=== PATIENT | female | born 1955 | race Caucasian/White ===

== ENCOUNTER 2019-01-06 06:15 | Emergency (ER) | payer BC, OTHER ==
[~2019-01-06] VITALS: Ht 157.5 cm; Wt 74.4 kg
[~2019-01-06 06:15] MED LIST: ATORVASTATIN CA80 MG PO; HYDROCODONE PO; IBUPROFEN PO; LANTUS 3ML100 UNITS/ SQ; LANTUS100 UNITS/ SQ; LASIX20 MG PO; LISINOPRIL10 MG PO; LOPRESSOR25 MG PO; LOVENOX60 MG/0.6; NORVASC5 MG PO; NOVOLOG MI100 UNIT/1 SQ; POTASSIUM CHLO10 ME1 PO
--- OUTSIDE RECORDS SUMMARY | 2019-01-06 06:20 | XMS REPORT ---
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 Allergies, Adverse Reactions, Alerts Allergy Name Allergy Type Status Severity Reaction(s) Onset Date Inactive Date Treating Clinician Comments codeine DA Active MO 2018-11-13 00:00:00 codeine DA Active MO 2018-10-10 00:00:00 codeine DA Active MO 2018-09-02 00:00:00 No Known Allergies DA Active U 2013-01-27 00:00:00 Medications This patient has no known medications. Results Test Description Test Time Test Comments Text Results Atomic Results Result Comments - XR TIBIA/FIBULA 2 V RT 2018-11-25 14:12:00 FAX: Harmeet Graves MD [phone] Ruth: St: ADM FAX: Booker Nelson [phone] FAX: Shahid Jarrett [phone] Name: STEFANIE BAIRD [facility] [place] : 1955 Age/S: 62/F [address] [place] [address] Unit #: [id number] Loc: [address] [address] Phys: Harmeet Graves MD Acct: [id number] Dis Date: Status: ADM IN PHONE #: [phone] Exam Date: 11/25/2018 1211 FAX #: [phone] Reason: right ankle and right LE pain EXAMS: CPT CODE: [id number] XR TIBIA/FIBULA 2 V RT [address]87 Patient: STEFANIE BAIRD. : 1955; Age: 62 years; Gender: Female. MR: [id number]. Ordering physician: Harmeet Graves MD. Right tibia and fibula 2 views. Right ankle 3 views. HISTORY: Right lower extremity and ankle pain. COMPARISON: None. FINDINGS: Frontal and lateral views of right tibia and fibula were obtained. Frontal, oblique and lateral views of the right ankle were obtained. All joint spaces are well preserved. No evidence of fracture, dislocation, knee or ankle joint effusion. Soft tissue is unremarkable. IMPRESSION: 1. Unremarkable right tibia and fibula. 2. Unremarkable right ankle. SL: [id number] at 1412 Reported and signed by: Azeem Altman M.D. CC: Harmeet Graves MD; Booker Mota M.D.; Shahid Jarrett DO Technologist: RT Arthur(R) Trnscrd Date/Time/By: 11/25/2018 (1412) : By: [email or web address] Orig Print D/T: S: 11/25/2018 (5411) PAGE 1 Signed Report - XR ANKLE 3 + V RT 2018-11-25 14:12:00 FAX: Harmeet Graves MD [phone] Ruth: St: ADM FAX: Booker Nelson [phone] FAX: Shahid Jarrett [phone] Name: STEFANIE BAIRD [facility] Dayna Soto : 1955 Age/S: 62/F [address] [place] [address] Unit #: [id number] Loc: [address] [address] Phys: Harmeet Graves MD Acct: [id number] Dis Date: Status: ADM IN PHONE #: [phone] Exam Date: 11/25/2018 1211 FAX #: [phone] Reason: right ankle and right LE pain EXAMS: CPT CODE: [id number] XR ANKLE 3 + V RT 71410 Patient: STEFANIE BAIRD. : 1955; Age: 62 years; Gender: Female. MR: [id number]. Ordering physician: Harmeet Graves MD. Right tibia and fibula 2 views. Right ankle 3 views. HISTORY: Right lower extremity and ankle pain. COMPARISON: None. FINDINGS: Frontal and lateral views of right tibia and fibula were obtained. Frontal, oblique and lateral views of the right ankle were obtained. All joint spaces are well preserved. No evidence of fracture, dislocation, knee or ankle joint effusion. Soft tissue is unremarkable. IMPRESSION: 1. Unremarkable right tibia and fibula. 2. Unremarkable right ankle. SL: [id number] at 1412 Reported and signed by: Azeem Altman M.D. CC: Harmeet Graves MD; Booker Mota M.D.; Shahid Jarrett DO Technologist: Kat Almodovar RT(R) Trnscrd Date/Time/By: 11/25/2018 (1412) : By: [email or web address] Orig Print D/T: S: 11/25/2018 (1590) PAGE 1 Signed Report BASIC METABOLIC PANEL 2018-11-25 08:24:00 SODIUM (test code=NA) 142 mEq/L 134-147 POTASSIUM (test code=K) 3.9 mEq/L 3.4-5.0 CHLORIDE (test code=CL) 106 mEq/L 100-108 CARBON DIOXIDE (test code=CO2) 31 mEq/L 21-33 ANION GAP (test code=GAP) 9 0-20 GLUCOSE (test code=GLU) 82 mg/dL 70-110 BLOOD UREA NITROGEN (test code=BUN) 10 mg/dL 7-18 GLOMERULAR FILTRATION RATE (test code=GFR) 101.6 80-90 Units of measure=ml/min/1.73 m2 CREATININE (test code=CREAT) 0.6 mg/dL 0.6-1.3 CALCIUM (test code=CA) 8.7 mg/dL 8.0-10.5 CBC W/AUTO [id number] 07:14:00* Test Item Value Reference Range Comments WHITE BLOOD CELL (test code=WBC) 6.51 x10 3/uL 4.5-11.0 RED BLOOD CELL (test code=RBC) 3.67 x10 6/uL 3.54-5.02 HEMOGLOBIN (test code=HGB) 12.5 g/dL 11.0-15.0 HEMATOCRIT (test code=HCT) 37.2 % 33.0-45.0 MEAN CELL VOLUME (test code=MCV) 101.4 fL 81.0-99.0 MEAN CELL HGB (test code=MCH) 34.1 pg 27.0-33.0 MEAN CELL HGB CONCETRATION (test code=MCHC) 33.6 g/dL 33.0-37.0 RED CELL DISTRIBUTION WIDTH CV (test code=RDW) 12.0 % 11.5-14.5 RED CELL DISTRIBUTION WIDTH SD (test code=RDW-SD) 45.0 fL 37.0-54.0 PLATELET COUNT (test code=PLT) 172 x10 3/uL 150-400 MEAN PLATELET VOLUME (test code=MPV) 12.8 fL 7.0-9.0 NEUTROPHIL % (test code=NT%) 63.2 % 56.0-77.0 IMMATURE GRANULOCYTE % (test code=IG%) 0.3 % 0.0-2.0 LYMPHOCYTE % (test code=LY%) 25.7 % 14.0-32.0 MONOCYTE % (test code=MO%) 8.4 % 4.8-9.0 EOSINOPHIL % (test code=EO%) 1.8 % 0.3-3.7 BASOPHIL % (test code=BA%) 0.6 % 0.0-2.0 NUCLEATED RBC % (test code=NRBC%) 0.0 % 0-0 NEUTROPHIL # (test code=NT#) 4.11 x10 3/uL 2.0-7.6 IMMATURE GRANULOCYTE # (test code=IG#) 0.02 x10 3/uL 0.00-0.03 LYMPHOCYTE # (test code=LY#) 1.67 x10 3/uL 1.0-3.8 MONOCYTE # (test code=MO#) 0.55 x10 3/uL 0.1-0.8 EOSINOPHIL # (test code=EO#) 0.12 x10 3/uL 0.0-0.2 BASOPHIL # (test code=BA#) 0.04 x10 3/uL 0.0-0.2 NUCLEATED RBC # (test code=NRBC#) 0.00 x10 3/uL 0.0-0.1 MANUAL DIFF REQUIRED (test code=MDIFF) NO - DUP EXTRACRANIAL [id number] 09:54:00 Name: STEFANIE BAIRD [facility] : 1955 Age/S: 62 / F [address] [place] [address] Blvd Unit #: [id number] Loc: [place] [address] Phys: Coby Reina MD Acct: [id number] Dis Date: Status: ADM IN PHONE #: [phone] Exam Date: 11/24/2018 09 FAX #: [phone] Reason: stroke EXAMS: CPT CODE: [id number] DUP EXTRACRANIAL DAVID 99520 BILATERAL CAROTID ULTRASOUND HISTORY: Left-sided leg weakness TECHNIQUE: Edouard-scale, color Doppler and spectral Doppler of the carotid arteries was performed. Any reported ICA stenoses indirectly reference the distal internal carotid diameter as the denominator for stenosis measurement, utilizing consensus panel criteria. RIGHT: There is mild carotid bulb plaque. ICA PSV 119 cm/sec CCA PSV 71 cm/sec ICA/CCA ratio 1.7 Vertebral flow is antegrade. LEFT: There is mild carotid bulb plaque. ICA PSV 110 cm/sec CCA PSV 88 cm/sec ICA/CCA ratio 1.2 Vertebral flow is antegrade. IMPRESSION: 1. RIGHT: ICA stenosis less than 50 % by velocity criteria. 2. LEFT: ICA stenosis less than 50 % by velocity criteria. End Impression Consensus panel Doppler US criteria for diagnosis of ICA stenosis. Stenosis (%) ICA PSV (cm/sec) ICA/CCA ratio <50 <125 <2.0 50-69 125-230 2.0-4.0 >70 but less than >230 >4.0 near occlusion Near occlusion High, low, or Variable undetectable SL: [id number] PAGE 1 Signed Report (CONTINUED) Name: STEFANIE BAIRD [facility] : 1955 Age/S: 62 / F [address] [place] [address] Unit #: [id number] Loc: [place] [address] Phys: Coby Reina MD Acct: [id number] Dis Date: Status: ADM IN PHONE #: Exam Date: 11/24/2018 0934 FAX #: Reason: stroke EXAMS: CPT CODE: [id number] DUP EXTRACRANIAL DAVID 02178 <Continued> at 0954 Reported and signed by: Zurdo Hood M.D. CC: Booker Mota M.D.; Shahid Jarrett DO; Coby Reina MD Technologist: Kimberly Lynch RDMS(AB)(OB) Trnscb Date/Time: 11/24/2018 (0954) [email or web address] Orig Print D/T: S: 11/24/2018 (0958) Probe: PAGE 2 Signed Report BASIC METABOLIC [id number] 08:18:00* Test Item Value Reference Range Comments SODIUM (test code=NA) 138 mEq/L 134-147 POTASSIUM (test code=K) 3.5 mEq/L 3.4-5.0 CHLORIDE (test code=CL) 104 mEq/L 100-108 CARBON DIOXIDE (test code=CO2) 29 mEq/L 21-33 ANION GAP (test code=GAP) 9 0-20 GLUCOSE (test code=GLU) 127 mg/dL 70-110 BLOOD UREA NITROGEN (test code=BUN) 12 mg/dL 7-18 GLOMERULAR FILTRATION RATE (test code=GFR) 85.1 80-90 Units of measure=ml/min/1.73 m2 CREATININE (test code=CREAT) 0.7 mg/dL 0.6-1.3 CALCIUM (test code=CA) 8.7 mg/dL 8.0-10.5 CBC W/AUTO [id number] 07:32:00* Test Item Value Reference Range Comments WHITE BLOOD CELL (test code=WBC) 6.16 x10 3/uL 4.5-11.0 RED BLOOD CELL (test code=RBC) 3.32 x10 6/uL 3.54-5.02 HEMOGLOBIN (test code=HGB) 11.3 g/dL 11.0-15.0 HEMATOCRIT (test code=HCT) 34.0 % 33.0-45.0 MEAN CELL VOLUME (test code=MCV) 102.4 fL 81.0-99.0 MEAN CELL HGB (test code=MCH) 34.0 pg 27.0-33.0 MEAN CELL HGB CONCETRATION (test code=MCHC) 33.2 g/dL 33.0-37.0 RED CELL DISTRIBUTION WIDTH CV (test code=RDW) 12.1 % 11.5-14.5 RED CELL DISTRIBUTION WIDTH SD (test code=RDW-SD) 45.7 fL 37.0-54.0 PLATELET COUNT (test code=PLT) 158 x10 3/uL 150-400 MEAN PLATELET VOLUME (test code=MPV) 12.2 fL 7.0-9.0 NEUTROPHIL % (test code=NT%) 58.2 % 56.0-77.0 IMMATURE GRANULOCYTE % (test code=IG%) 0.2 % 0.0-2.0 LYMPHOCYTE % (test code=LY%) 29.4 % 14.0-32.0 MONOCYTE % (test code=MO%) 9.1 % 4.8-9.0 EOSINOPHIL % (test code=EO%) 2.1 % 0.3-3.7 BASOPHIL % (test code=BA%) 1.0 % 0.0-2.0 NUCLEATED RBC % (test code=NRBC%) 0.0 % 0-0 NEUTROPHIL # (test code=NT#) 3.59 x10 3/uL 2.0-7.6 IMMATURE GRANULOCYTE # (test code=IG#) 0.01 x10 3/uL 0.00-0.03 LYMPHOCYTE # (test code=LY#) 1.81 x10 3/uL 1.0-3.8 MONOCYTE # (test code=MO#) 0.56 x10 3/uL 0.1-0.8 EOSINOPHIL # (test code=EO#) 0.13 x10 3/uL 0.0-0.2 BASOPHIL # (test code=BA#) 0.06 x10 3/uL 0.0-0.2 NUCLEATED RBC # (test code=NRBC#) 0.00 x10 3/uL 0.0-0.1 MANUAL DIFF REQUIRED (test code=MDIFF) NO - CT HEAD/BRAIN W/O [id number] 19:32:00 Name: STEFANIE BAIRD [facility] : 1955 Age/S: 62 / F [address] [place] [address] Unit #: [id number] Loc: [place] [address] Phys: Harmeet Graves MD Acct: [id number] Dis Date: Status: ADM IN PHONE #: [phone] Exam Date: 11/23/20181923 FAX #: [phone] Reason: FALL EXAMS: CPT CODE: [id number] CT HEAD/BRAIN W/O CONT 46578 Clinical Indication: Fall. Comparison: MRI brain study dated 11/21/2018. TECHNIQUE: CT images were obtained from the foramen magnum to the vertex without the use of intravenous contrast on a multidetector CT. Coronal and sagittal reconstructions were obtained. CT imaging performed at this location utilizes radiation dose optimization techniques which include one or more of the following: -Automated exposure control -Adjustment of the mA and/or kV according to patient size -Use of iterative reconstruction technique CT Radiation Dose DLP 964.80 mGy-cm FINDINGS: BRAIN PARENCHYMA: Involving nonhemorrhagic infarct in the left brachium pontis. No significant mass effect.. Subtle low density changes in the bilateral periventricular white matter. There are normal edouard-white interfaces, sulci and gyri. There are no focal mass lesions on this noncontrast head CT. There is no mass effect, midline shift or edema. There are no intra- axial or extra-axial fluid collections, intraventricular or intrapa renchymal hemorrhage. The pineal, sellar, brainstem, cerebellum and skull base regions appear unremarkable. VENTRICLES: The lateral ve ntricles, third and fourth ventricles appear unremarkable. The basilar cis terns are normal. ORBITS, MASTOIDS AND PARANASAL SINUSES: The vis ualized orbits and paranasal sinuses are unremarkable. The mastoid air andrew ls are clear. SKULL: There are no osseous abnormalities. If there is further concern for intracranial pathology or acute stro ke, MRI of the brain may be performed for complete assessment. I MPRESSION: 1. Evolving nonhemorrhagic infarct along the left bactrim pontis. 2. No acute intracranial hemorrhage, mass ef fect or midline shift. 3. Mild chronic microvascular ischemic changes. PAGE 1 Signed Report (CONTINUED) Name: STEFANIE BAIRD [facility] : 1955 Age/S: 62 / F [address] [place] [address] Unit #: [id number] Loc: [place] [address] Phys: Harmeet Graves MD Acct: [id number] Dis Date: Status: ADM IN PHONE #: [phone] Exam Date: 11/23/20181923 FAX #: [phone] Reason: FALL EXAMS: CPT CODE: [id number] HEAD/BRAIN W/O CONT 02545 < Continued> SL: APATIL-H at 1932 Reported and signed by: Irma Michelle M.D. CC: Harmeet Graves MD; Booker Mota M.D.; Shahid Jarrett DO Technologist:Jaida Brooke, (R)(CT) CTDI: DLP: Trnscb Date/Time: 11/23/2018 (1931) [email or web address] Orig Print D/T: S: 11/23/2018 (1934) PAGE 2 Signed Report - XR HIP W/PEL UNI 2+V [id number] 18:00:00 FAX: Harmeet Graves MD [phone] Ruth: St: ADM FAX: Booker Nelson [phone] FAX: Shahid Jarrett [phone] Name: STEFANIE BAIRD [facility] : 1955 Age/S: 62/F [address] [place] [address] Unit #: [id number] Loc: [address] [place] [address] Phys: Harmeet Graves MD Acct: [id number] Dis Date: Status: ADM IN ONE #: [phone] Exam Date: 11/23/2018 1722 FAX #: [phone] Reason: S/P FALL EXAMS: CPT CODE: [id number] XR HIP W/PEL UNI 2+[place] [address] Clinical Indic ation: S/P FALL; Comparison: None FINDINGS: The 2 views of the right hip show normal alignment without fractures or di slocations. There are no radio-opaque foreign bodies. The acetabulum is un remarkable. The visualized sacroiliac joint and symphysis pubis are unrema rkable. If there is further concern, recommend follow-up radiogra phs or MRI for complete assessment. IMPRESSION: N o fracture or dislocation of the left hip. SL: DORA at 1800 Reported and si gned by: Eduard Loya M.D. CC: Harmeet Graves MD; Booker Mota M.D.; Shahid Jarrett DO Technologist: Keyona Ramirez RT(R) Trnscrd Date/Time/By: 11/23/2018 (1800) : By: [email or web address] Orig Print D/T: S: 11/23/2018 (1802) PAGE 1 Signed Report CBC W/AUTO [id number] 08:33:00* Test Item Value Reference Range Comments WHITE BLOOD CELL (test code=WBC) 6.64 x10 3/uL 4.5-11.0 RED BLOOD CELL (test code=RBC) 3.43 x10 6/uL 3.54-5.02 HEMOGLOBIN (test code=HGB) 11.8 g/dL 11.0-15.0 HEMATOCRIT (test code=HCT) 35.4 % 33.0-45.0 MEAN CELL VOLUME (test code=MCV) 103.2 fL 81.0-99.0 MEAN CELL HGB (test code=MCH) 34.4 pg 27.0-33.0 MEAN CELL HGB CONCETRATION (test code=MCHC) 33.3 g/dL 33.0-37.0 RED CELL DISTRIBUTION WIDTH CV (test code=RDW) 12.3 % 11.5-14.5 RED CELL DISTRIBUTION WIDTH SD (test code=RDW-SD) 46.4 fL 37.0-54.0 PLATELET COUNT (test code=PLT) 180 x10 3/uL 150-400 MEAN PLATELET VOLUME (test code=MPV) 12.3 fL 7.0-9.0 NEUTROPHIL % (test code=NT%) 63.8 % 56.0-77.0 IMMATURE GRANULOCYTE % (test code=IG%) 0.3 % 0.0-2.0 LYMPHOCYTE % (test code=LY%) 24.7 % 14.0-32.0 MONOCYTE % (test code=MO%) 8.6 % 4.8-9.0 EOSINOPHIL % (test code=EO%) 1.8 % 0.3-3.7 BASOPHIL % (test code=BA%) 0.8 % 0.0-2.0 NUCLEATED RBC % (test code=NRBC%) 0.0 % 0-0 NEUTROPHIL # (test code=NT#) 4.24 x10 3/uL 2.0-7.6 IMMATURE GRANULOCYTE # (test code=IG#) 0.02 x10 3/uL 0.00-0.03 LYMPHOCYTE # (test code=LY#) 1.64 x10 3/uL 1.0-3.8 MONOCYTE # (test code=MO#) 0.57 x10 3/uL 0.1-0.8 EOSINOPHIL # (test code=EO#) 0.12 x10 3/uL 0.0-0.2 BASOPHIL # (test code=BA#) 0.05 x10 3/uL 0.0-0.2 NUCLEATED RBC # (test code=NRBC#) 0.00 x10 3/uL 0.0-0.1 MANUAL DIFF REQUIRED (test code=MDIFF) NO BASIC METABOLIC [id number] 07:49:00* Test Item Value Reference Range Comments SODIUM (test code=NA) 140 mEq/L 134-147 POTASSIUM (test code=K) 3.9 mEq/L 3.4-5.0 CHLORIDE (test code=CL) 106 mEq/L 100-108 CARBON DIOXIDE (test code=CO2) 30 mEq/L 21-33 ANION GAP (test code=GAP) 8 0-20 GLUCOSE (test code=GLU) 89 mg/dL 70-110 BLOOD UREA NITROGEN (test code=BUN) 11 mg/dL 7-18 GLOMERULAR FILTRATION RATE (test code=GFR) 101.6 80-90 Units of measure=ml/min/1.73 m2 CREATININE (test code=CREAT) 0.6 mg/dL 0.6-1.3 CALCIUM (test code=CA) 8.8 mg/dL 8.0-10.5 SED RATE [id number] 09:07:00* Test Item Value Reference Range Comments SED RATE WESTERGREN (test code=SEDW) 25 mm/hr 0-20 - MRI BRAIN W/O [id number] 18:36:00 FAX: Booker Nelson [phone] Ruth: St: [facility] FAX: Shahid Jarrett [phone] FAX: Kell Dietrich [phone] [facility] 1955 Age/S: 62/F [address] [place] [address] Unit #: [id number] Loc: [address] [place] [address] Phys: Kell Yao MD Acct: [id number] Dis Date: Status: ADM IN PHONE #: [phone] Exam Date: 11/21/2018 1612 FAX #: [phone] Reason: STROKE LIKE SYMPTOMS EXAMS: CPT CODE: [id number] MR I BRAIN W/O CONT 12711 BRAIN MRI WITH OUT CONTRAST 11/21/2018 AT 1609 HOURS. MEDICAL HISTORY: Stroke like symptoms. Left-sided weakness. Headache today. Diabetic. COMPARISON STUDIES: Brain MRI 11/14/2018, head CT 11/13/2018 and prior MR/CT studies dating back to 10/07/2018. ADMINISTERED CONTRAST: None. FINDINGS: Full and complete multiplanar T1, T2, T2*, FLAIR and diffusion-weighted sequences of the brain and cerebellum were obtained wi thout IV contrast. Grossly stable 15 x 10 mm aging infarct of the left brachium pontis without hemorrhagic conversion or expansion of the i schemic penumbra. This is versus 14 x 10 mm in the previous study. Mild residual restricted diffusion is seen at this level. No new evidence of restricted diffusion in the brain or cerebellum. Age-appropriate inv olutional change is again seen with mild chronic white matter small vessel ischemic disease. Normal flow-voids are seen in the anterior and posterior cerebral arterial circulation as well as the venous sinuses. Clear para nasal sinuses and mastoid air cells. IMPRESSION: 1. Stab le aging nonhemorrhagic infarct of the left brachium pontis. 2. No new e vidence of intracranial ischemia or hemorrhage. 3. Involutional change a nd mild chronic white matter small vessel ischemic disease. SL: ER-H at 1836 Reported and signed by: Avinash Nguyễn M.D. CC: Booker Mota M.D.; Shahid Jarrett DO; Kell Dutton MD Technologist: Aneesh AdamsR)(CT)(MR) Trnscrd Date/Time/By: 11/21/2018 (183) : By: [email or web address] Orig Print D/T: S: 11/21/2018 (9195) PAGE 1 Signed Report [id number] 14:56:00* Test Item Value Reference Range Comments GLUBED (test code=GLUBED) 177 MG/DL 70-110 Performed by certified kst operator at [facility] CBC W/AUTO [id number] 08:09:00* Test Item Value Reference Range Comments WHITE BLOOD CELL (test code=WBC) 7.36 x10 3/uL 4.5-11.0 RED BLOOD CELL (test code=RBC) 3.51 x10 6/uL 3.54-5.02 HEMOGLOBIN (test code=HGB) 12.0 g/dL 11.0-15.0 HEMATOCRIT (test code=HCT) 35.7 % 33.0-45.0 MEAN CELL VOLUME (test code=MCV) 101.7 fL 81.0-99.0 MEAN CELL HGB (test code=MCH) 34.2 pg 27.0-33.0 MEAN CELL HGB CONCETRATION (test code=MCHC) 33.6 g/dL 33.0-37.0 RED CELL DISTRIBUTION WIDTH CV (test code=RDW) 12.2 % 11.5-14.5 RED CELL DISTRIBUTION WIDTH SD (test code=RDW-SD) 46.2 fL 37.0-54.0 PLATELET COUNT (test code=PLT) 190 x10 3/uL 150-400 MEAN PLATELET VOLUME (test code=MPV) 11.9 fL 7.0-9.0 NEUTROPHIL % (test code=NT%) 56.8 % 56.0-77.0 IMMATURE GRANULOCYTE % (test code=IG%) 0.1 % 0.0-2.0 LYMPHOCYTE % (test code=LY%) 31.0 % 14.0-32.0 MONOCYTE % (test code=MO%) 9.0 % 4.8-9.0 EOSINOPHIL % (test code=EO%) 2.3 % 0.3-3.7 BASOPHIL % (test code=BA%) 0.8 % 0.0-2.0 NUCLEATED RBC % (test code=NRBC%) 0.0 % 0-0 NEUTROPHIL # (test code=NT#) 4.18 x10 3/uL 2.0-7.6 IMMATURE GRANULOCYTE # (test code=IG#) 0.01 x10 3/uL 0.00-0.03 LYMPHOCYTE # (test code=LY#) 2.28 x10 3/uL 1.0-3.8 MONOCYTE # (test code=MO#) 0.66 x10 3/uL 0.1-0.8 EOSINOPHIL # (test code=EO#) 0.17 x10 3/uL 0.0-0.2 BASOPHIL # (test code=BA#) 0.06 x10 3/uL 0.0-0.2 NUCLEATED RBC # (test code=NRBC#) 0.00 x10 3/uL 0.0-0.1 MANUAL DIFF REQUIRED (test code=MDIFF) NO BASIC METABOLIC [id number] 08:01:00* Test Item Value Reference Range Comments SODIUM (test code=NA) 140 mEq/L 134-147 POTASSIUM (test code=K) 3.8 mEq/L 3.4-5.0 CHLORIDE (test code=CL) 107 mEq/L 100-108 CARBON DIOXIDE (test code=CO2) 27 mEq/L 21-33 ANION GAP (test code=GAP) 10 0-20 GLUCOSE (test code=GLU) 119 mg/dL 70-110 BLOOD UREA NITROGEN (test code=BUN) 10 mg/dL 7-18 GLOMERULAR FILTRATION RATE (test code=GFR) 72.9 80-90 Units of measure=ml/min/1.73 m2 CREATININE (test code=CREAT) 0.8 mg/dL 0.6-1.3 CALCIUM (test code=CA) 9.0 mg/dL 8.0-10.5 BASIC METABOLIC [id number] 08:55:00* Test Item Value Reference Range Comments SODIUM (test code=NA) 143 mEq/L 134-147 POTASSIUM (test code=K) 3.9 mEq/L 3.4-5.0 CHLORIDE (test code=CL) 109 mEq/L 100-108 CARBON DIOXIDE (test code=CO2) 30 mEq/L 21-33 ANION GAP (test code=GAP) 8 0-20 GLUCOSE (test code=GLU) 100 mg/dL 70-110 BLOOD UREA NITROGEN (test code=BUN) 9 mg/dL 7-18 GLOMERULAR FILTRATION RATE (test code=GFR) 125.4 80-90 Units of measure=ml/min/1.73 m2 CREATININE (test code=CREAT) 0.5 mg/dL 0.6-1.3 CALCIUM (test code=CA) 9.4 mg/dL 8.0-10.5 CBC W/AUTO [id number] 08:18:00* Test Item Value Reference Range Comments WHITE BLOOD CELL (test code=WBC) 6.99 x10 3/uL 4.5-11.0 RED BLOOD CELL (test code=RBC) 3.58 x10 6/uL 3.54-5.02 HEMOGLOBIN (test code=HGB) 12.2 g/dL 11.0-15.0 HEMATOCRIT (test code=HCT) 36.3 % 33.0-45.0 MEAN CELL VOLUME (test code=MCV) 101.4 fL 81.0-99.0 MEAN CELL HGB (test code=MCH) 34.1 pg 27.0-33.0 MEAN CELL HGB CONCETRATION (test code=MCHC) 33.6 g/dL 33.0-37.0 RED CELL DISTRIBUTION WIDTH CV (test code=RDW) 12.3 % 11.5-14.5 RED CELL DISTRIBUTION WIDTH SD (test code=RDW-SD) 46.3 fL 37.0-54.0 PLATELET COUNT (test code=PLT) 178 x10 3/uL 150-400 MEAN PLATELET VOLUME (test code=MPV) 11.9 fL 7.0-9.0 NEUTROPHIL % (test code=NT%) 60.3 % 56.0-77.0 IMMATURE GRANULOCYTE % (test code=IG%) 0.3 % 0.0-2.0 LYMPHOCYTE % (test code=LY%) 27.0 % 14.0-32.0 MONOCYTE % (test code=MO%) 9.4 % 4.8-9.0 EOSINOPHIL % (test code=EO%) 2.3 % 0.3-3.7 BASOPHIL % (test code=BA%) 0.7 % 0.0-2.0 NUCLEATED RBC % (test code=NRBC%) 0.0 % 0-0 NEUTROPHIL # (test code=NT#) 4.21 x10 3/uL 2.0-7.6 IMMATURE GRANULOCYTE # (test code=IG#) 0.02 x10 3/uL 0.00-0.03 LYMPHOCYTE # (test code=LY#) 1.89 x10 3/uL 1.0-3.8 MONOCYTE # (test code=MO#) 0.66 x10 3/uL 0.1-0.8 EOSINOPHIL # (test code=EO#) 0.16 x10 3/uL 0.0-0.2 BASOPHIL # (test code=BA#) 0.05 x10 3/uL 0.0-0.2 NUCLEATED RBC # (test code=NRBC#) 0.00 x10 3/uL 0.0-0.1 MANUAL DIFF REQUIRED (test code=MDIFF) NO [id number] 15:18:00* Test Item Value Reference Range Comments GLUBED (test code=GLUBED) 152 MG/DL 70-110 Performed by certified kst operator at [facility] BASIC METABOLIC [id number] 07:42:00* Test Item Value Reference Range Comments SODIUM (test code=NA) 141 mEq/L 134-147 POTASSIUM (test code=K) 3.8 mEq/L 3.4-5.0 CHLORIDE (test code=CL) 107 mEq/L 100-108 CARBON DIOXIDE (test code=CO2) 30 mEq/L 21-33 ANION GAP (test code=GAP) 8 0-20 GLUCOSE (test code=GLU) 104 mg/dL 70-110 BLOOD UREA NITROGEN (test code=BUN) 9 mg/dL 7-18 GLOMERULAR FILTRATION RATE (test code=GFR) 125.4 80-90 Units of measure=ml/min/1.73 m2 CREATININE (test code=CREAT) 0.5 mg/dL 0.6-1.3 CALCIUM (test code=CA) 9.3 mg/dL 8.0-10.5 CBC W/AUTO [id number] 07:35:00* Test Item Value Reference Range Comments WHITE BLOOD CELL (test code=WBC) 6.66 x10 3/uL 4.5-11.0 RED BLOOD CELL (test code=RBC) 3.53 x10 6/uL 3.54-5.02 HEMOGLOBIN (test code=HGB) 12.1 g/dL 11.0-15.0 HEMATOCRIT (test code=HCT) 35.9 % 33.0-45.0 MEAN CELL VOLUME (test code=MCV) 101.7 fL 81.0-99.0 MEAN CELL HGB (test code=MCH) 34.3 pg 27.0-33.0 MEAN CELL HGB CONCETRATION (test code=MCHC) 33.7 g/dL 33.0-37.0 RED CELL DISTRIBUTION WIDTH CV (test code=RDW) 12.4 % 11.5-14.5 RED CELL DISTRIBUTION WIDTH SD (test code=RDW-SD) 46.1 fL 37.0-54.0 PLATELET COUNT (test code=PLT) 186 x10 3/uL 150-400 MEAN PLATELET VOLUME (test code=MPV) 11.4 fL 7.0-9.0 NEUTROPHIL % (test code=NT%) 59.2 % 56.0-77.0 IMMATURE GRANULOCYTE % (test code=IG%) 0.3 % 0.0-2.0 LYMPHOCYTE % (test code=LY%) 27.9 % 14.0-32.0 MONOCYTE % (test code=MO%) 9.9 % 4.8-9.0 EOSINOPHIL % (test code=EO%) 2.1 % 0.3-3.7 BASOPHIL % (test code=BA%) 0.6 % 0.0-2.0 NUCLEATED RBC % (test code=NRBC%) 0.0 % 0-0 NEUTROPHIL # (test code=NT#) 3.94 x10 3/uL 2.0-7.6 IMMATURE GRANULOCYTE # (test code=IG#) 0.02 x10 3/uL 0.00-0.03 LYMPHOCYTE # (test code=LY#) 1.86 x10 3/uL 1.0-3.8 MONOCYTE # (test code=MO#) 0.66 x10 3/uL 0.1-0.8 EOSINOPHIL # (test code=EO#) 0.14 x10 3/uL 0.0-0.2 BASOPHIL # (test code=BA#) 0.04 x10 3/uL 0.0-0.2 NUCLEATED RBC # (test code=NRBC#) 0.00 x10 3/uL 0.0-0.1 MANUAL DIFF REQUIRED (test code=MDIFF) NO [id number] 09:04:00* Test Item Value Reference Range Comments GLUBED (test code=GLUBED) 95 MG/DL 70-110 Performed by certified kst operator at [facility] BASIC METABOLIC [id number] 07:41:00* Test Item Value Reference Range Comments SODIUM (test code=NA) 142 mEq/L 134-147 POTASSIUM (test code=K) 4.0 mEq/L 3.4-5.0 CHLORIDE (test code=CL) 106 mEq/L 100-108 CARBON DIOXIDE (test code=CO2) 32 mEq/L 21-33 ANION GAP (test code=GAP) 8 0-20 GLUCOSE (test code=GLU) 87 mg/dL 70-110 BLOOD UREA NITROGEN (test code=BUN) 11 mg/dL 7-18 GLOMERULAR FILTRATION RATE (test code=GFR) 101.6 80-90 Units of measure=ml/min/1.73 m2 CREATININE (test code=CREAT) 0.6 mg/dL 0.6-1.3 CALCIUM (test code=CA) 9.3 mg/dL 8.0-10.5 CBC W/AUTO [id number] 07:33:00* Test Item Value Reference Range Comments WHITE BLOOD CELL (test code=WBC) 6.00 x10 3/uL 4.5-11.0 RED BLOOD CELL (test code=RBC) 3.47 x10 6/uL 3.54-5.02 HEMOGLOBIN (test code=HGB) 11.8 g/dL 11.0-15.0 HEMATOCRIT (test code=HCT) 35.5 % 33.0-45.0 MEAN CELL VOLUME (test code=MCV) 102.3 fL 81.0-99.0 MEAN CELL HGB (test code=MCH) 34.0 pg 27.0-33.0 MEAN CELL HGB CONCETRATION (test code=MCHC) 33.2 g/dL 33.0-37.0 RED CELL DISTRIBUTION WIDTH CV (test code=RDW) 12.4 % 11.5-14.5 RED CELL DISTRIBUTION WIDTH SD (test code=RDW-SD) 46.5 fL 37.0-54.0 PLATELET COUNT (test code=PLT) 192 x10 3/uL 150-400 MEAN PLATELET VOLUME (test code=MPV) 11.5 fL 7.0-9.0 NEUTROPHIL % (test code=NT%) 59.5 % 56.0-77.0 IMMATURE GRANULOCYTE % (test code=IG%) 0.3 % 0.0-2.0 LYMPHOCYTE % (test code=LY%) 27.8 % 14.0-32.0 MONOCYTE % (test code=MO%) 9.2 % 4.8-9.0 EOSINOPHIL % (test code=EO%) 2.2 % 0.3-3.7 BASOPHIL % (test code=BA%) 1.0 % 0.0-2.0 NUCLEATED RBC % (test code=NRBC%) 0.0 % 0-0 NEUTROPHIL # (test code=NT#) 3.57 x10 3/uL 2.0-7.6 IMMATURE GRANULOCYTE # (test code=IG#) 0.02 x10 3/uL 0.00-0.03 LYMPHOCYTE # (test code=LY#) 1.67 x10 3/uL 1.0-3.8 MONOCYTE # (test code=MO#) 0.55 x10 3/uL 0.1-0.8 EOSINOPHIL # (test code=EO#) 0.13 x10 3/uL 0.0-0.2 BASOPHIL # (test code=BA#) 0.06 x10 3/uL 0.0-0.2 NUCLEATED RBC # (test code=NRBC#) 0.00 x10 3/uL 0.0-0.1 MANUAL DIFF REQUIRED (test code=MDIFF) NO [id number] 23:30:00* Test Item Value Reference Range Comments GLUBED (test code=GLUBED) 124 MG/DL 70-110 Performed by certified kst operator at [facility] [id number] 15:54:00* Test Item Value Reference Range Comments GLUBED (test code=GLUBED) 119 MG/DL 70-110 Performed by certified kst operator at [facility] [id number] 11:23:00* Test Item Value Reference Range Comments GLUBED (test code=GLUBED) 120 MG/DL 70-110 Performed by certified kst operator at [facility] [id number] 08:44:00* Test Item Value Reference Range Comments GLUBED (test code=GLUBED) 89 MG/DL 70-110 Performed by certified kst operator at [facility] BASIC METABOLIC [id number] 08:34:00* Test Item Value Reference Range Comments SODIUM (test code=NA) 143 mEq/L 134-147 POTASSIUM (test code=K) 3.9 mEq/L 3.4-5.0 CHLORIDE (test code=CL) 110 mEq/L 100-108 CARBON DIOXIDE (test code=CO2) 30 mEq/L 21-33 ANION GAP (test code=GAP) 7 0-20 GLUCOSE (test code=GLU) 96 mg/dL 70-110 BLOOD UREA NITROGEN (test code=BUN) 11 mg/dL 7-18 GLOMERULAR FILTRATION RATE (test code=GFR) 125.4 80-90 Units of measure=ml/min/1.73 m2 CREATININE (test code=CREAT) 0.5 mg/dL 0.6-1.3 CALCIUM (test code=CA) 8.8 mg/dL 8.0-10.5 CBC W/AUTO [id number] 07:51:00* Test Item Value Reference Range Comments WHITE BLOOD CELL (test code=WBC) 5.53 x10 3/uL 4.5-11.0 RED BLOOD CELL (test code=RBC) 3.39 x10 6/uL 3.54-5.02 HEMOGLOBIN (test code=HGB) 11.5 g/dL 11.0-15.0 HEMATOCRIT (test code=HCT) 34.7 % 33.0-45.0 MEAN CELL VOLUME (test code=MCV) 102.4 fL 81.0-99.0 MEAN CELL HGB (test code=MCH) 33.9 pg 27.0-33.0 MEAN CELL HGB CONCETRATION (test code=MCHC) 33.1 g/dL 33.0-37.0 RED CELL DISTRIBUTION WIDTH CV (test code=RDW) 12.4 % 11.5-14.5 RED CELL DISTRIBUTION WIDTH SD (test code=RDW-SD) 46.6 fL 37.0-54.0 PLATELET COUNT (test code=PLT) 180 x10 3/uL 150-400 MEAN PLATELET VOLUME (test code=MPV) 11.6 fL 7.0-9.0 NEUTROPHIL % (test code=NT%) 54.3 % 56.0-77.0 IMMATURE GRANULOCYTE % (test code=IG%) 0.2 % 0.0-2.0 LYMPHOCYTE % (test code=LY%) 33.6 % 14.0-32.0 MONOCYTE % (test code=MO%) 8.5 % 4.8-9.0 EOSINOPHIL % (test code=EO%) 2.5 % 0.3-3.7 BASOPHIL % (test code=BA%) 0.9 % 0.0-2.0 NUCLEATED RBC % (test code=NRBC%) 0.0 % 0-0 NEUTROPHIL # (test code=NT#) 3.00 x10 3/uL 2.0-7.6 IMMATURE GRANULOCYTE # (test code=IG#) 0.01 x10 3/uL 0.00-0.03 LYMPHOCYTE # (test code=LY#) 1.86 x10 3/uL 1.0-3.8 MONOCYTE # (test code=MO#) 0.47 x10 3/uL 0.1-0.8 EOSINOPHIL # (test code=EO#) 0.14 x10 3/uL 0.0-0.2 BASOPHIL # (test code=BA#) 0.05 x10 3/uL 0.0-0.2 NUCLEATED RBC # (test code=NRBC#) 0.00 x10 3/uL 0.0-0.1 MANUAL DIFF REQUIRED (test code=MDIFF) NO [id number] 21:53:00* Test Item Value Reference Range Comments GLUBED (test code=GLUBED) 129 MG/DL 70-110 Performed by certified kst operator at [facility] [id number] 17:50:00* Test Item Value Reference Range Comments GLUBED (test code=GLUBED) 104 MG/DL 70-110 Performed by certified kst operator at [facility] CBC W/AUTO [id number] 14:56:00* Test Item Value Reference Range Comments WHITE BLOOD CELL (test code=WBC) 5.72 x10 3/uL 4.5-11.0 RED BLOOD CELL (test code=RBC) 3.32 x10 6/uL 3.54-5.02 HEMOGLOBIN (test code=HGB) 11.4 g/dL 11.0-15.0 HEMATOCRIT (test code=HCT) 34.0 % 33.0-45.0 MEAN CELL VOLUME (test code=MCV) 102.4 fL 81.0-99.0 MEAN CELL HGB (test code=MCH) 34.3 pg 27.0-33.0 MEAN CELL HGB CONCETRATION (test code=MCHC) 33.5 g/dL 33.0-37.0 RED CELL DISTRIBUTION WIDTH CV (test code=RDW) 12.4 % 11.5-14.5 RED CELL DISTRIBUTION WIDTH SD (test code=RDW-SD) 46.6 fL 37.0-54.0 PLATELET COUNT (test code=PLT) 186 x10 3/uL 150-400 MEAN PLATELET VOLUME (test code=MPV) 11.5 fL 7.0-9.0 NEUTROPHIL % (test code=NT%) 58.6 % 56.0-77.0 IMMATURE GRANULOCYTE % (test code=IG%) 0.2 % 0.0-2.0 LYMPHOCYTE % (test code=LY%) 28.7 % 14.0-32.0 MONOCYTE % (test code=MO%) 9.4 % 4.8-9.0 EOSINOPHIL % (test code=EO%) 2.4 % 0.3-3.7 BASOPHIL % (test code=BA%) 0.7 % 0.0-2.0 NUCLEATED RBC % (test code=NRBC%) 0.0 % 0-0 NEUTROPHIL # (test code=NT#) 3.35 x10 3/uL 2.0-7.6 IMMATURE GRANULOCYTE # (test code=IG#) 0.01 x10 3/uL 0.00-0.03 LYMPHOCYTE # (test code=LY#) 1.64 x10 3/uL 1.0-3.8 MONOCYTE # (test code=MO#) 0.54 x10 3/uL 0.1-0.8 EOSINOPHIL # (test code=EO#) 0.14 x10 3/uL 0.0-0.2 BASOPHIL # (test code=BA#) 0.04 x10 3/uL 0.0-0.2 NUCLEATED RBC # (test code=NRBC#) 0.00 x10 3/uL 0.0-0.1 MANUAL DIFF REQUIRED (test code=MDIFF) NO [id number] 13:25:00* Test Item Value Reference Range Comments GLUBED (test code=GLUBED) 155 MG/DL 70-110 Performed by certified kst operator at [facility] [id number] 13:25:00* Test Item Value Reference Range Comments GLUBED (test code=GLUBED) 110 MG/DL 70-110 Performed by certified kst operator at [facility] BASIC METABOLIC [id number] 08:13:00* Test Item Value Reference Range Comments SODIUM (test code=NA) 142 mEq/L 134-147 POTASSIUM (test code=K) 3.3 mEq/L 3.4-5.0 CHLORIDE (test code=CL) 107 mEq/L 100-108 CARBON DIOXIDE (test code=CO2) 29 mEq/L 21-33 ANION GAP (test code=GAP) 9 0-20 GLUCOSE (test code=GLU) 101 mg/dL 70-110 BLOOD UREA NITROGEN (test code=BUN) 12 mg/dL 7-18 GLOMERULAR FILTRATION RATE (test code=GFR) 125.4 80-90 Units of measure=ml/min/1.73 m2 CREATININE (test code=CREAT) 0.5 mg/dL 0.6-1.3 CALCIUM (test code=CA) 8.7 mg/dL 8.0-10.5 CBC W/AUTO [id number] 07:36:00* Test Item Value Reference Range Comments WHITE BLOOD CELL (test code=WBC) 5.72 x10 3/uL 4.5-11.0 RED BLOOD CELL (test code=RBC) 3.32 x10 6/uL 3.54-5.02 HEMOGLOBIN (test code=HGB) 11.4 g/dL 11.0-15.0 HEMATOCRIT (test code=HCT) 34.0 % 33.0-45.0 MEAN CELL VOLUME (test code=MCV) 102.4 fL 81.0-99.0 MEAN CELL HGB (test code=MCH) 34.3 pg 27.0-33.0 MEAN CELL HGB CONCETRATION (test code=MCHC) 33.5 g/dL 33.0-37.0 RED CELL DISTRIBUTION WIDTH CV (test code=RDW) 12.4 % 11.5-14.5 RED CELL DISTRIBUTION WIDTH SD (test code=RDW-SD) 46.6 fL 37.0-54.0 PLATELET COUNT (test code=PLT) 186 x10 3/uL 150-400 MEAN PLATELET VOLUME (test code=MPV) 11.5 fL 7.0-9.0 NEUTROPHIL % (test code=NT%) 58.6 % 56.0-77.0 IMMATURE GRANULOCYTE % (test code=IG%) 0.2 % 0.0-2.0 LYMPHOCYTE % (test code=LY%) 28.7 % 14.0-32.0 MONOCYTE % (test code=MO%) 9.4 % 4.8-9.0 EOSINOPHIL % (test code=EO%) 2.4 % 0.3-3.7 BASOPHIL % (test code=BA%) 0.7 % 0.0-2.0 NUCLEATED RBC % (test code=NRBC%) 0.0 % 0-0 NEUTROPHIL # (test code=NT#) 3.35 x10 3/uL 2.0-7.6 IMMATURE GRANULOCYTE # (test code=IG#) 0.01 x10 3/uL 0.00-0.03 LYMPHOCYTE # (test code=LY#) 1.64 x10 3/uL 1.0-3.8 MONOCYTE # (test code=MO#) 0.54 x10 3/uL 0.1-0.8 EOSINOPHIL # (test code=EO#) 0.14 x10 3/uL 0.0-0.2 BASOPHIL # (test code=BA#) 0.04 x10 3/uL 0.0-0.2 NUCLEATED RBC # (test code=NRBC#) 0.00 x10 3/uL 0.0-0.1 MANUAL DIFF REQUIRED (test code=MDIFF) [id number] 21:17:00* Test Item Value Reference Range Comments GLUBED (test code=GLUBED) 131 MG/DL 70-110 Performed by certified kst operator at [facility] [id number] 17:55:00* Test Item Value Reference Range Comments GLUBED (test code=GLUBED) 138 MG/DL 70-110 Performed by certified kst operator at [facility] [id number] 09:35:00* Test Item Value Reference Range Comments GLUBED (test code=GLUBED) 119 MG/DL 70-110 Performed by certified kst operator at [facility] BASIC METABOLIC [id number] 07:41:00* Test Item Value Reference Range Comments SODIUM (test code=NA) 143 mEq/L 134-147 POTASSIUM (test code=K) 3.5 mEq/L 3.4-5.0 CHLORIDE (test code=CL) 109 mEq/L 100-108 CARBON DIOXIDE (test code=CO2) 27 mEq/L 21-33 ANION GAP (test code=GAP) 11 0-20 GLUCOSE (test code=GLU) 112 mg/dL 70-110 BLOOD UREA NITROGEN (test code=BUN) 11 mg/dL 7-18 GLOMERULAR FILTRATION RATE (test code=GFR) 125.4 80-90 Units of measure=ml/min/1.73 m2 CREATININE (test code=CREAT) 0.5 mg/dL 0.6-1.3 CALCIUM (test code=CA) 8.5 mg/dL 8.0-10.5 CBC W/AUTO [id number] 07:27:00* Test Item Value Reference Range Comments WHITE BLOOD CELL (test code=WBC) 5.93 x10 3/uL 4.5-11.0 RED BLOOD CELL (test code=RBC) 3.33 x10 6/uL 3.54-5.02 HEMOGLOBIN (test code=HGB) 11.2 g/dL 11.0-15.0 HEMATOCRIT (test code=HCT) 33.7 % 33.0-45.0 MEAN CELL VOLUME (test code=MCV) 101.2 fL 81.0-99.0 MEAN CELL HGB (test code=MCH) 33.6 pg 27.0-33.0 MEAN CELL HGB CONCETRATION (test code=MCHC) 33.2 g/dL 33.0-37.0 RED CELL DISTRIBUTION WIDTH CV (test code=RDW) 12.2 % 11.5-14.5 RED CELL DISTRIBUTION WIDTH SD (test code=RDW-SD) 45.2 fL 37.0-54.0 PLATELET COUNT (test code=PLT) 190 x10 3/uL 150-400 MEAN PLATELET VOLUME (test code=MPV) 11.3 fL 7.0-9.0 NEUTROPHIL % (test code=NT%) 64.0 % 56.0-77.0 IMMATURE GRANULOCYTE % (test code=IG%) 0.2 % 0.0-2.0 LYMPHOCYTE % (test code=LY%) 23.8 % 14.0-32.0 MONOCYTE % (test code=MO%) 9.3 % 4.8-9.0 EOSINOPHIL % (test code=EO%) 1.9 % 0.3-3.7 BASOPHIL % (test code=BA%) 0.8 % 0.0-2.0 NUCLEATED RBC % (test code=NRBC%) 0.0 % 0-0 NEUTROPHIL # (test code=NT#) 3.80 x10 3/uL 2.0-7.6 IMMATURE GRANULOCYTE # (test code=IG#) 0.01 x10 3/uL 0.00-0.03 LYMPHOCYTE # (test code=LY#) 1.41 x10 3/uL 1.0-3.8 MONOCYTE # (test code=MO#) 0.55 x10 3/uL 0.1-0.8 EOSINOPHIL # (test code=EO#) 0.11 x10 3/uL 0.0-0.2 BASOPHIL # (test code=BA#) 0.05 x10 3/uL 0.0-0.2 NUCLEATED RBC # (test code=NRBC#) 0.00 x10 3/uL 0.0-0.1 MANUAL DIFF REQUIRED (test code=MDIFF) NO - MRI BRAIN W/O [id number] 22:43:00 FAX: Booker Nelson [phone] Ruth: St: [facility] FAX: Shahid Jarrett [phone] FAX: Coby Hernández MD [phone] Name: STEFANIE BAIRD [facility] : 1955 Age/S: 62/F [address] [place] [address] Unit #: [id number] Loc: G.544 [place] [address] Phys: Coby Reina MD Acct: [id number] Dis Date: Status: ADM IN ONE #: [phone] Exam Date: 11/14/20181913 FAX #: [phone] Reason: LEFT SIDED WEAKNESS EXAMS: CPT CODE: [id number] MR I BRAIN W/O CONT 51120 MRI BRAIN WITH OUT CONTRAST INDICATION: Left-sided weakness. CVA versus TIA. TECHNIQUE: Multiple MR sequences of the brain were performed without contrast. COMPARISONS: CT head 11/13/2018. MRI brain 019. FINDINGS: The paranasal sinuses are clear as vi sualized. The mastoid air cells and middle ears appear clear as vi sualized. The vascular flow voids are preserved. The cerebral vent ricles are normal caliber. There is no restricted water diffusion. There is a decreased size 1.4 cm area of T2 signal hyperintensity in the left brachium pontis with less intrinsic hyperintensity when compared to pr ior. There is a stable mild burden of chronic small vessel ischemic disea se lesions in the frontoparietal white matter. There is no cerebral mass effect, midline shift, intracranial hemorrhage or acute cerebral edema. IMPRESSION: 1. There is no acute intracranial process. There is no acute ischemia, acute cerebral edema or intracra nial hemorrhage. 2. 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 3. There is a stable mild christian en of chronic small vessel ischemic disease lesions in the frontoparieta l white matter. at 2243 Reported and signed by: Elias Wiseman D.O. CC: Booker Mota M.D.; Shahid Reina MD Technologist: RT Ifeanyi(R)(CT) Trnscrd Date/Time/By: 11/14/2018 (9730) : By: [email or web address] Orig Print D/T: S: 11/14/2018 (9745) PAGE 1 Signed Report [id number] 20:46:00* Test Item Value Reference Range Comments GLUBED (test code=GLUBED) 123 MG/DL 70-110 Performed by certified kst operator at [facility] [id number] 13:44:00* Test Item Value Reference Range Comments GLUBED (test code=GLUBED) 164 MG/DL 70-110 Performed by certified kst operator at [facility] [id number] 13:44:00* Test Item Value Reference Range Comments GLUBED (test code=GLUBED) 178 MG/DL 70-110 Performed by certified kst operator at [facility] [id number]%2018-11-14 12:27:00* Test Item Value Reference Range Comments HGBA1C% (test code=HGBA1C%) 7.0 %A1C 4.8-6.0 LIPID PROFILE (CORONARY RISK)2018-11-14 12:19:00* Test Item Value Reference Range Comments TRIGLYCERIDES (test code=TRIG) 138 mg/dL 40-150 CHOLESTEROL (test code=CHOL) 203 mg/dL <200 CHOLESTEROL/HDL RATIO (test code=CHOLHDL) 5.80 RATIO 3.27-4.44 RISK ASSOCIATED WITH CHOL/HDL RATIOS: RISK MALE FEMALE1/2 AVERAGE 3.43 3.27AVERAGE 4.97 4.442X AVERAGE 9.55 7.053X AVERAGE 23.39 11.04 NOTE THAT THE REFERENCE VALUE IS RELATEDTO RISK LEVELS RECOMMENDED BY THE NATL.HEART, LUNG, AND BLOOD INST. HDL CHOLESTEROL (test code=HDL) 35.0 mg/dL 39-96 LIPOPROTEIN LDL (test code=LDL) 147 mg/dL 0-100 <100 [id number] NEAR OPTIMAL/ABOVE [id number] HIGH>BV=477 VERY HIGH*Guidelines provided by the National Cholesterol EducationProgram Adult Treatment Panel III THYROID STIMULATING [id number] 12:19:00* Test Item Value Reference Range Comments THYROID STIMULATING HORMONE (test code=TSH) 1.57 0.42-5.47 Results in rubi-International Units/mL COMPREHENSIVE METABOLIC [id number] 07:28:00* Test Item Value Reference Range Comments SODIUM (test code=NA) 144 mEq/L 134-147 POTASSIUM (test code=K) 3.8 mEq/L 3.4-5.0 CHLORIDE (test code=CL) 108 mEq/L 100-108 CARBON DIOXIDE (test code=CO2) 31 mEq/L 21-33 ANION GAP (test code=GAP) 9 0-20 GLUCOSE (test code=GLU) 116 mg/dL 70-110 BLOOD UREA NITROGEN (test code=BUN) 9 mg/dL 7-18 GLOMERULAR FILTRATION RATE (test code=GFR) 101.6 80-90 Units of measure=ml/min/1.73 m2 CREATININE (test code=CREAT) 0.6 mg/dL 0.6-1.3 TOTAL PROTEIN (test code=PROT) 6.2 g/dL 6.4-8.2 ALBUMIN (test code=ALB) 3.00 g/dL 3.4-5.0 CALCIUM (test code=CA) 9.0 mg/dL 8.0-10.5 BILIRUBIN TOTAL (test code=BILT) 0.80 mg/dL 0.0-1.0 SGOT/AST (test code=AST) 28 IUnit/L 15-37 SGPT/ALT (test code=ALT) 16 IUnit/L 15-65 ALKALINE PHOSPHATASE TOTAL (test code=ALKP) 81 IUnit/L 20-125 COMMENTS: 3 troponins total (including troponin done in ED)[id number] 07:28:00* Test Item Value Reference Range Comments TROPONIN-I (test code=TROPI) < 0.015 ng/mL 0.000-0.045 Negative: <=0.045 Positive: >=0.046 Correlation with serial results, other cardiac markers andclinical findings is necessary to determine the clinicalsignificance of this result. Results using different methodologies should not be comparedto one another as quantitative results may vary by method. COMMENTS: 3 troponins total (including troponin done in ED)[id number] 05:30:00* Test Item Value Reference Range Comments GLUBED (test code=GLUBED) 117 MG/DL 70-110 Performed by certified kst operator at [facility] CBC W/AUTO [id number] 05:07:00* Test Item Value Reference Range Comments WHITE BLOOD CELL (test code=WBC) 6.70 x10 3/uL 4.5-11.0 RED BLOOD CELL (test code=RBC) 3.38 x10 6/uL 3.54-5.02 HEMOGLOBIN (test code=HGB) 11.3 g/dL 11.0-15.0 HEMATOCRIT (test code=HCT) 33.9 % 33.0-45.0 MEAN CELL VOLUME (test code=MCV) 100.3 fL 81.0-99.0 MEAN CELL HGB (test code=MCH) 33.4 pg 27.0-33.0 MEAN CELL HGB CONCETRATION (test code=MCHC) 33.3 g/dL 33.0-37.0 RED CELL DISTRIBUTION WIDTH CV (test code=RDW) 12.2 % 11.5-14.5 RED CELL DISTRIBUTION WIDTH SD (test code=RDW-SD) 44.7 fL 37.0-54.0 PLATELET COUNT (test code=PLT) 188 x10 3/uL 150-400 MEAN PLATELET VOLUME (test code=MPV) 11.3 fL 7.0-9.0 NEUTROPHIL % (test code=NT%) 56.2 % 56.0-77.0 IMMATURE GRANULOCYTE % (test code=IG%) 0.3 % 0.0-2.0 LYMPHOCYTE % (test code=LY%) 30.3 % 14.0-32.0 MONOCYTE % (test code=MO%) 9.9 % 4.8-9.0 EOSINOPHIL % (test code=EO%) 2.4 % 0.3-3.7 BASOPHIL % (test code=BA%) 0.9 % 0.0-2.0 NUCLEATED RBC % (test code=NRBC%) 0.0 % 0-0 NEUTROPHIL # (test code=NT#) 3.77 x10 3/uL 2.0-7.6 IMMATURE GRANULOCYTE # (test code=IG#) 0.02 x10 3/uL 0.00-0.03 LYMPHOCYTE # (test code=LY#) 2.03 x10 3/uL 1.0-3.8 MONOCYTE # (test code=MO#) 0.66 x10 3/uL 0.1-0.8 EOSINOPHIL # (test code=EO#) 0.16 x10 3/uL 0.0-0.2 BASOPHIL # (test code=BA#) 0.06 x10 3/uL 0.0-0.2 NUCLEATED RBC # (test code=NRBC#) 0.00 x10 3/uL 0.0-0.1 MANUAL DIFF REQUIRED (test code=MDIFF) NO [id number] 01:15:00* Test Item Value Reference Range Comments TROPONIN-I (test code=TROPI) < 0.015 ng/mL 0.000-0.045 Negative: <=0.045 Positive: >=0.046 Correlation with serial results, other cardiac markers andclinical findings is necessary to determine the clinicalsignificance of this result. Results using different methodologies should not be comparedto one another as quantitative results may vary by method. COMMENTS: 3 troponins total (including troponin done in ED)[id number] 23:56:00* Test Item Value Reference Range Comments GLUBED (test code=GLUBED) 119 MG/DL 70-110 Performed by certified kst operator at [facility] [id number] 20:39:00* Test Item Value Reference Range Comments GLUBED (test code=GLUBED) 125 MG/DL 70-110 Performed by certified kst operator at [facility] - XR CHEST 1 [id number] 20:24:00 FAX: Booker Nelson [phone] Ruth: St: REG Name: STEFANIE ORO [facility] : [birth year] Age/S: 62/F [address] [place] [address] Unit #: [id number] Loc: [place] [address] Phys: Armin Esqueda MD Acct: [id number] Dis Date: Status: REG ER PHONE #: [phone] Exam Date: 11/13/20182021 FAX #: [phone] Reason: stroke EXAMS: CPT CODE: [id number] XR CHEST 1 V 26159 1 view chest portable: HISTORY: Stroke. FINDINGS: No comparison. The lungs are clear. The heart and mediastinal contours unremarkable. No pleural or bony pat hology. IMPRESSION: No acute finding SL: EG-H Electronically Signed by Mala Alcala on at 2023 Reported and signed by: Driss Shelton CC: Booker Mota M.D. Technologist: RT Ervin(Aneesh)(M); Micah Harris, RT(R) T rnscrd Date/Time/By: 11/13/2018 (2023) : By: Nathanael Orig Print D/T: S: 11/13/2018 (2027) PAGE 1 Sign ed Report - CT HEAD/BRAIN W/O [id number] 20:01:00 Name: STEFANIE BAIRD : 1955 Age/S: 62 / F [address] [place] [address] Blvd Unit #: [id number] Loc: [place] [address] Phys: Armin Esqueda MD Acct: [id number] Dis Date: Status: REG ER PHONE #: [phone] Exam Date: 11/13/20181931 FAX #: [phone] Reason: CODE NEURO Report Has Been Amended EXAMS: CPT CODE: [id number] CT HEAD/BRAIN W/O CONT 50801 Addendum - 11/13/2018 SIGNED 11/13/2018 ADDENDUM: [id number] CT/CTHDBRWO This report contains findings that may be critical to patient care. 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 at 2001 Reported and signed by: Elias Wiseman D.O. Report UNENHANCED CT HEAD INDICATION: CODE NEURO. TECHNIQUE: Unenhanced CT was performed from the skull vertex to the foramen magnum with axial, coronal and sagittal reconstructions. CT imaging performed at this location utilizes radiation dose optimization technique which includes one or more of the followin) Automated exposure control; 2) Adjustment of the mA and/or kV according to patient's size; 3) Use of iterative reconstruction techniques. DLP (mGy-cm): 1144 COMPARISONS: CTA head and neck 10/09/2018. MRI brain 10/08/2018. CT head 10/07/2018 FINDINGS: The paranasal sinuses are clear as visualized. The mastoid air cells and middle ears appear clear as visualized. There is no acute depressed skull fracture. There is a moderate burden of atherosclerotic vascular calcification of the intracranial arteries. The cerebral ventricles are normal caliber. There is no cerebral mass PAGE 1 Signed Report (CONTINUED) Name: STEFANIE BAIRD : 1955 Age/S: 62 / F [address] [place] [address] Unit #: [id number] Loc: [place] [address] Phys: Armin Esqueda MD Acct: [id number] Dis Date: Status: REG ER PHONE #: [phone] Exam Date: 11/13/20181931 FAX #: [phone] Reason: CODE NEURO Report Has Been Amended EXAMS: CPT CODE: [id number] CT HEAD/BRAIN W/O CONT 35275 <Continued> effect, midline shift, intracranial hemorrhage or acute large vessel territory cerebral cortical edema. IMPRESSION: 1. There is no acute intracranial process. There is no intrac ranial hemorrhage or acute cerebral edema detected. The Leslie Stroke P rogram Early CT Score (ASPECTS) is 10/10. Electronically Signed by Inocencio Wiseman on 0 11/13/2018 at 1954 Reported and signed by: Willie Wiseman D.O. CC: Booker Mota M.D. Technologist:RT Javier(R) CTDI: D LP: Trnscb Date/Time: 11/13/2018 (1954) [email or web address] Orig Print D/T: S: 11/13/2018 (1956) PAGE 2 Signed R eport - CT HEAD/BRAIN W/O [id number] 19:55:00 Name: STEFANIE BAIRD : 1955 Age/S: 62 / F [address] [place] [address] Unit #: [id number] Loc: [place] [address] Phys: Roland Esqueda MD Acct: [id number] Di s Date: Status: REG ER PHONE #: Exam Date: 11/13/20181931 FAX #: Reason: CODE NEURO EXAMS: CPT CODE: [id number] CT HEAD/BRAIN W/O CONT [address] HEAD INDICATION: CODE NEURO. TECHNIQUE: Unenhanced CT was perf ormed from the skull vertex to the foramen magnum with axial, coronal and sagittal reconstructions. CT imaging performed at this location utilizes radiation dose optimization technique which includes one or more of the fo llowin) Automated exposure control; 2) Adjustment of the mA and/or kV according to patient's size; 3) Use of iterative reconstruction tech niques. DLP (mGy-cm): 1144 COMPARISONS: CTA head and neck 10/10/19 19. MRI brain 10/08/2018. CT head 10/07/2018 FINDINGS: The paranasal sinuses are clear as visualized. The mastoid air cells and middle ears appear clear as visualized. There is no acute depressed skull fracture. There is a moderate burden of a therosclerotic vascular calcification of the intracranial arteries. The cerebral ventricles are normal caliber. There is no cerebral mass effect, midline shift, intracranial hemorrhage or acute large vessel territory cerebral cortical edema. IMPRESSION: 1. There is no acute intracranial process. There is no intracran ial hemorrhage or acute cerebral edema detected. The Leslie Stroke Prog bernabe Early CT Score (ASPECTS) is 10/10. Electronically Signed by Inocencio Wiseman on 10/18 at 1955 Reported and signed by: Elias Wiseman D.O. PAGE 1 Signed Report (CONTINUED) Name: STEFANIE BAIRD [facility] : 1955 Age/S: 62 / F [address] [place] [address] Unit #: [id number] Loc: [place] [address] Phys: Armin Esqueda MD Acct: [id number] Dis Date: Status: REG ER PHONE #: [phone] Exam Date: 11/13/20181931 FAX #: [phone] Reason: CODE NEURO EXAMS: CPT CODE: [id number] CT HEAD/BRAIN W/O CONT 63933 <Continued> CC: Booker Mota M.D. Technologist:Monie Gallo, RT(R) CTDI: DLP: Trnscb Date/Time: 11/13/2018 (1954) [id number] Orig Print D/T: S: 11/13/2018 (1956) PAGE 2 Signed Report PROTHROMBIN [id number] 19:42:00* Test Item Value Reference Range Comments PROTHROMBIN TIME PATIENT (test code=PTP) 13.4 SECONDS 9.3-12.9 INTERNATIONAL NORMAL RATIO (test code=INR) 1.2 0.8-1.2 TARGET INR BY INDICATION Indication INR1. Prophylaxis of venous thrombosis 2.0 - 3.0 (orthopedic surgery), Prophylaxis of venous thrombosis (other than high-risk surgery), Treatment of Deep Vein Thrombosis/Pulmonary Embolism, Prevention of systemic embolism - Tissue heart valves, Acute Myocardial Infarction (to prevent systemic embolism), Valvular heart disease, Atrial Fibrillation, Bileaflet mechanical valve in aortic position.2. Mechanical prosthetic valves (high risk), 2.5 - 3.5 Presence of Lupus Anticoagulant or Antiphospholipid Antibodies, Prevention of systemic embolism - Acute Myocardial Infarction (to prevent recurrent infarct). THROMBOPLASTIN TIME [id number] 19:42:00* Test Item Value Reference Range Comments THROMBOPLASTIN TIME PARTIAL (test code=PTT) 36.7 Seconds 25.0-39.5 Therapeutic Range: 50.4 - 88.3 Seconds Effective 07/02/2018 CBC W/O [id number] 19:34:00* Test Item Value Reference Range Comments WHITE BLOOD CELL (test code=WBC) 10.98 x10 3/uL 4.5-11.0 RED BLOOD CELL (test code=RBC) 3.93 x10 6/uL 3.54-5.02 HEMOGLOBIN (test code=HGB) 13.5 g/dL 11.0-15.0 HEMATOCRIT (test code=HCT) 39.2 % 33.0-45.0 MEAN CELL VOLUME (test code=MCV) 99.7 fL 81.0-99.0 MEAN CELL HGB (test code=MCH) 34.4 pg 27.0-33.0 MEAN CELL HGB CONCETRATION (test code=MCHC) 34.4 g/dL 33.0-37.0 RED CELL DISTRIBUTION WIDTH CV (test code=RDW) 12.1 % 11.5-14.5 RED CELL DISTRIBUTION WIDTH SD (test code=RDW-SD) 44.9 fL 37.0-54.0 PLATELET COUNT (test code=PLT) 227 x10 3/uL 150-400 MEAN PLATELET VOLUME (test code=MPV) 11.0 fL 7.0-9.0 [id number] 08:13:00* Test Item Value Reference Range Comments MAGNESIUM (test code=MAG) 1.80 mg/dL 1.8-2.4 VITAMIN [id number] 18:16:00* Test Item Value Reference Range Comments VITAMIN B12 (test code=VITB12) 568 pg/mL 193-986 [id number] 08:51:00* Test Item Value Reference Range Comments ALBUMIN (test code=ALB) 2.80 g/dL 3.4-5.0 [id number] 08:51:00* Test Item Value Reference Range Comments PREALBUMIN (test code=PREALB) 14.2 mg/dL 16.0-40.0 CBC W/AUTO [id number] 07:56:00* Test Item Value Reference Range Comments WHITE BLOOD CELL (test code=WBC) 6.40 x10 3/uL 4.5-11.0 RED BLOOD CELL (test code=RBC) 3.49 x10 6/uL 3.54-5.02 HEMOGLOBIN (test code=HGB) 12.4 g/dL 11.0-15.0 HEMATOCRIT (test code=HCT) 35.5 % 33.0-45.0 MEAN CELL VOLUME (test code=MCV) 101.7 fL 81.0-99.0 MEAN CELL HGB (test code=MCH) 35.5 pg 27.0-33.0 MEAN CELL HGB CONCETRATION (test code=MCHC) 34.9 g/dL 33.0-37.0 RED CELL DISTRIBUTION WIDTH CV (test code=RDW) 12.1 % 11.5-14.5 RED CELL DISTRIBUTION WIDTH SD (test code=RDW-SD) 45.1 fL 37.0-54.0 PLATELET COUNT (test code=PLT) 192 x10 3/uL 150-400 MEAN PLATELET VOLUME (test code=MPV) 12.0 fL 7.0-9.0 NEUTROPHIL % (test code=NT%) 62.0 % 56.0-77.0 IMMATURE GRANULOCYTE % (test code=IG%) 0.2 % 0.0-2.0 LYMPHOCYTE % (test code=LY%) 27.7 % 14.0-32.0 MONOCYTE % (test code=MO%) 7.8 % 4.8-9.0 EOSINOPHIL % (test code=EO%) 1.7 % 0.3-3.7 BASOPHIL % (test code=BA%) 0.6 % 0.0-2.0 NUCLEATED RBC % (test code=NRBC%) 0.0 % 0-0 NEUTROPHIL # (test code=NT#) 3.97 x10 3/uL 2.0-7.6 IMMATURE GRANULOCYTE # (test code=IG#) 0.01 x10 3/uL 0.00-0.03 LYMPHOCYTE # (test code=LY#) 1.77 x10 3/uL 1.0-3.8 MONOCYTE # (test code=MO#) 0.50 x10 3/uL 0.1-0.8 EOSINOPHIL # (test code=EO#) 0.11 x10 3/uL 0.0-0.2 BASOPHIL # (test code=BA#) 0.04 x10 3/uL 0.0-0.2 NUCLEATED RBC # (test code=NRBC#) 0.00 x10 3/uL 0.0-0.1 MANUAL DIFF REQUIRED (test code=MDIFF) NO BASIC METABOLIC [id number] 07:56:00* Test Item Value Reference Range Comments SODIUM (test code=NA) 141 mEq/L 134-147 POTASSIUM (test code=K) 3.4 mEq/L 3.4-5.0 CHLORIDE (test code=CL) 109 mEq/L 100-108 CARBON DIOXIDE (test code=CO2) 26 mEq/L 21-33 ANION GAP (test code=GAP) 9 0-20 GLUCOSE (test code=GLU) 88 mg/dL 70-110 BLOOD UREA NITROGEN (test code=BUN) 9 mg/dL 7-18 GLOMERULAR FILTRATION RATE (test code=GFR) 162.3 80-90 Units of measure=ml/min/1.73 m2 CREATININE (test code=CREAT) 0.4 mg/dL 0.6-1.3 CALCIUM (test code=CA) 8.7 mg/dL 8.0-10.5 COMPREHENSIVE METABOLIC [id number] 08:10:00* Test Item Value Reference Range Comments SODIUM (test code=NA) 141 mEq/L 134-147 POTASSIUM (test code=K) 3.6 mEq/L 3.4-5.0 CHLORIDE (test code=CL) 109 mEq/L 100-108 CARBON DIOXIDE (test code=CO2) 25 mEq/L 21-33 ANION GAP (test code=GAP) 11 0-20 GLUCOSE (test code=GLU) 99 mg/dL 70-110 BLOOD UREA NITROGEN (test code=BUN) 8 mg/dL 7-18 GLOMERULAR FILTRATION RATE (test code=GFR) 162.3 80-90 Units of measure=ml/min/1.73 m2 CREATININE (test code=CREAT) 0.4 mg/dL 0.6-1.3 TOTAL PROTEIN (test code=PROT) 5.7 g/dL 6.4-8.2 ALBUMIN (test code=ALB) 2.50 g/dL 3.4-5.0 CALCIUM (test code=CA) 8.3 mg/dL 8.0-10.5 BILIRUBIN TOTAL (test code=BILT) 0.30 mg/dL 0.0-1.0 SGOT/AST (test code=AST) 16 IUnit/L 15-37 SGPT/ALT (test code=ALT) 18 IUnit/L 15-65 ALKALINE PHOSPHATASE TOTAL (test code=ALKP) 61 IUnit/L 20-125 [id number] 08:10:00* Test Item Value Reference Range Comments MAGNESIUM (test code=MAG) 1.70 mg/dL 1.8-2.4 CBC W/AUTO [id number] 06:59:00* Test Item Value Reference Range Comments WHITE BLOOD CELL (test code=WBC) 5.16 x10 3/uL 4.5-11.0 RED BLOOD CELL (test code=RBC) 3.27 x10 6/uL 3.54-5.02 HEMOGLOBIN (test code=HGB) 11.6 g/dL 11.0-15.0 HEMATOCRIT (test code=HCT) 33.7 % 33.0-45.0 MEAN CELL VOLUME (test code=MCV) 103.1 fL 81.0-99.0 MEAN CELL HGB (test code=MCH) 35.5 pg 27.0-33.0 MEAN CELL HGB CONCETRATION (test code=MCHC) 34.4 g/dL 33.0-37.0 RED CELL DISTRIBUTION WIDTH CV (test code=RDW) 12.0 % 11.5-14.5 RED CELL DISTRIBUTION WIDTH SD (test code=RDW-SD) 45.4 fL 37.0-54.0 PLATELET COUNT (test code=PLT) 174 x10 3/uL 150-400 MEAN PLATELET VOLUME (test code=MPV) 12.0 fL 7.0-9.0 NEUTROPHIL % (test code=NT%) 57.5 % 56.0-77.0 IMMATURE GRANULOCYTE % (test code=IG%) 0.4 % 0.0-2.0 LYMPHOCYTE % (test code=LY%) 33.1 % 14.0-32.0 MONOCYTE % (test code=MO%) 6.6 % 4.8-9.0 EOSINOPHIL % (test code=EO%) 1.6 % 0.3-3.7 BASOPHIL % (test code=BA%) 0.8 % 0.0-2.0 NUCLEATED RBC % (test code=NRBC%) 0.0 % 0-0 NEUTROPHIL # (test code=NT#) 2.97 x10 3/uL 2.0-7.6 IMMATURE GRANULOCYTE # (test code=IG#) 0.02 x10 3/uL 0.00-0.03 LYMPHOCYTE # (test code=LY#) 1.71 x10 3/uL 1.0-3.8 MONOCYTE # (test code=MO#) 0.34 x10 3/uL 0.1-0.8 EOSINOPHIL # (test code=EO#) 0.08 x10 3/uL 0.0-0.2 BASOPHIL # (test code=BA#) 0.04 x10 3/uL 0.0-0.2 NUCLEATED RBC # (test code=NRBC#) 0.00 x10 3/uL 0.0-0.1 MANUAL DIFF REQUIRED (test code=MDIFF) NO BASIC METABOLIC [id number] 08:17:00* Test Item Value Reference Range Comments SODIUM (test code=NA) 139 mEq/L 134-147 POTASSIUM (test code=K) 4.2 mEq/L 3.4-5.0 CHLORIDE (test code=CL) 114 mEq/L 100-108 CARBON DIOXIDE (test code=CO2) 18 mEq/L 21-33 ANION GAP (test code=GAP) 11 0-20 GLUCOSE (test code=GLU) 81 mg/dL 70-110 BLOOD UREA NITROGEN (test code=BUN) 7 mg/dL 7-18 GLOMERULAR FILTRATION RATE (test code=GFR) 125.4 80-90 Units of measure=ml/min/1.73 m2 CREATININE (test code=CREAT) 0.5 mg/dL 0.6-1.3 CALCIUM (test code=CA) 8.3 mg/dL 8.0-10.5 CBC W/AUTO [id number] 07:58:00* Test Item Value Reference Range Comments WHITE BLOOD CELL (test code=WBC) 5.31 x10 3/uL 4.5-11.0 RED BLOOD CELL (test code=RBC) 3.24 x10 6/uL 3.54-5.02 HEMOGLOBIN (test code=HGB) 11.6 g/dL 11.0-15.0 HEMATOCRIT (test code=HCT) 33.8 % 33.0-45.0 MEAN CELL VOLUME (test code=MCV) 104.3 fL 81.0-99.0 MEAN CELL HGB (test code=MCH) 35.8 pg 27.0-33.0 MEAN CELL HGB CONCETRATION (test code=MCHC) 34.3 g/dL 33.0-37.0 RED CELL DISTRIBUTION WIDTH CV (test code=RDW) 12.0 % 11.5-14.5 RED CELL DISTRIBUTION WIDTH SD (test code=RDW-SD) 46.2 fL 37.0-54.0 PLATELET COUNT (test code=PLT) 186 x10 3/uL 150-400 MEAN PLATELET VOLUME (test code=MPV) 12.1 fL 7.0-9.0 NEUTROPHIL % (test code=NT%) 58.4 % 56.0-77.0 IMMATURE GRANULOCYTE % (test code=IG%) 0.4 % 0.0-2.0 LYMPHOCYTE % (test code=LY%) 32.6 % 14.0-32.0 MONOCYTE % (test code=MO%) 6.2 % 4.8-9.0 EOSINOPHIL % (test code=EO%) 1.5 % 0.3-3.7 BASOPHIL % (test code=BA%) 0.9 % 0.0-2.0 NUCLEATED RBC % (test code=NRBC%) 0.0 % 0-0 NEUTROPHIL # (test code=NT#) 3.10 x10 3/uL 2.0-7.6 IMMATURE GRANULOCYTE # (test code=IG#) 0.02 x10 3/uL 0.00-0.03 LYMPHOCYTE # (test code=LY#) 1.73 x10 3/uL 1.0-3.8 MONOCYTE # (test code=MO#) 0.33 x10 3/uL 0.1-0.8 EOSINOPHIL # (test code=EO#) 0.08 x10 3/uL 0.0-0.2 BASOPHIL # (test code=BA#) 0.05 x10 3/uL 0.0-0.2 NUCLEATED RBC # (test code=NRBC#) 0.00 x10 3/uL 0.0-0.1 MANUAL DIFF REQUIRED (test code=MDIFF) NO - CT ANGIO [id number] 16:03:00 Name: STEFANIE BAIRD [facility] : 1955 Age/S: 62 / F [address] [place] [address] Unit #: [id number] Loc: [place] [address] Phys: Alpesh Yu MD Acct: [id number] Dis Date: Status: ADM IN PHONE #: [phone] Exam Date: 10/09/2018 1834 FAX #: [phone] Reason: Possible dissection EXAMS: CPT CODE: [id number] CT ANGIO HEAD 61087 CTA HEAD WITH CONTRAST CTA NECK WITH CONTRAST Clinical Indication: Possible dissection, left-sided weakness Comparison: MRA 10/08/2018 TECHNIQUE: Sequential trans-axial images are obtained from the skull vertex to the thoracic inlet with a multi-detector helical CT after intravenous contrast administration. Coronal and sagittal MIP reconstructions are obtained. IV Contrast: [address] imaging performed at this location utilizes radiation dose optimization techniques which include one or more of the following: - Automated exposure control -Adjustment of the mA and/or kV according to patient size -Use of iterative reconstruction technique CT Radiation Dose DLP 1954.6 mGy-cm ICA stenosis indirectly reference the distal internal carotid diameter as the denominator for stenosis measurement, utilizing consensus panel criteria for PQRS code. (NASCET) FINDINGS: CTA [place] OF [place]: Distal right vertebral artery is dominant. 90% narrowing of the proximal basilar artery is noted. The distal basilar artery is irregular but patent. The bilateral middle cerebral arteries are patent. There are mild calcifications in the cavernous segments of the distal internal carotid arteries with narrowing of less than 20%. Bilateral anterior cerebral art eries are patent. The left middle cerebral artery is patent with normal c aliber. There 60% narrowing within the proximal M1 segment of the right m iddle cerebral artery. The M2 segments are patent. No large vessel occlu joel is identified. CTA NECK: Aortic arch has normal c aliber and contains calcifications and soft plaque. There is no significa nt stenosis at the origin of the brachiocephalic artery or bilateral subcl nadine arteries. There is mild soft plaque within the left common carotid artery. There are mild calcifications in the left carotid bulb. There ar e mild calcifications in the proximal left ICA cervical segment. The greatest degree of stenosis measures 20%. The right common carotid PAGE 1 Signed Report (CONTINUED) Name: STEFANIE TAN [facility] : 7 Age/S: 62 / F [address] [place] [address] Blvd Unit #: [id number] Loc: [place] [address] Phys: Alpesh Yu MD Acct: [id number] Dis Date: Status: ADM IN PHONE #: [phone] Exam Date: 10/09/2018 1834 FAX #: [phone] Re ason: Possible dissection EXAMS: CPT CODE: [id number] CT ANGIO HEAD 82335 <Continued> artery is mildly tortuous but has normal caliber. There is moderate soft plaque and calcified plaque within the right carotid bulb with narrowing of 40%. There are mild calcifications within the proximal right internal carotid artery. The right vertebral artery is dominant. Both vertebral arteries are patent. The bilateral parotid glands and submandibular glands appear normal. Thyroid gland is heterogeneous. No lymphadenopathy is identified. Moderate degenerative changes at C5-6 and C6-7. Lung apices are grossly unremarkable. IMPRESSION: 1. 90% narrowing within proximal basilar artery. 2. 60% narrowing within proximal right MCA M1 segment. 3. 40% narrowing within right carotid bulb. 4. 20% narrowing within left carotid bulb and bilateral ICA cave rnous segments. 5. No large vessel occlusion or aneurysm within intracranial arteries. SL: [id number] at 1603 Reported and signed by: Zurdo Hood M.D. CC: Booker Mota M.D.; Alpesh jean MD; Gurdeep Sandra MD Technologist:Tate Calderon, RT(R) CTDI: DLP: Trnscb Date/Time: 10/09/2018 (1603) [id number] Orig Print D/T: S: 10/09/2018 (5313) PAGE 2 Signed Report - CT ANGIO [id number] 16:03:00 Name: STEFANIE BAIRD [facility] : 1955 Age/S: 62 / F [address] [place] [address] Unit #: [id number] Loc: [place] [address] Phys: Alpesh Yu MD Acct: [id number] Di s Date: Status: ADM IN PHONE #: Exam Date: 10/09/2018 183 FAX #: Reason: Possible dissection EXAMS: CPT CODE: [id number] CT ANGIO NECK 69990 CTA HEAD WITH CONTRAST CTA NECK WITH CONTRAST Clinical Indication: Possible dissection, left-sided weakness Comparison: MRA 10/08/2018 TECHNIQUE: Sequential trans-axial images are obtained from the skull vertex to the t horacic inlet with a multi-detector helical CT after intravenous contrast administration. Coronal and sagittal MIP reconstructions are obtained. IV Contrast: [address] imaging performed at this [facility] utilizes radiation dose optimization techniques which include one o r more of the following: -Automated exposure control -Adjustment of the mA and/or kV according to patient size -Use of iterative reconstructio n technique CT Radiation Dose DLP 1954.6 mGy-cm ICA stenosis indirectly reference the distal internal carotid diameter as the denominator for stenosis measurement, utilizing consensus panel criteria f or PQRS code. (NASCET) FINDINGS: CTA [place] OF [place] L[place]: Distal right vertebral artery is dominant. 90% narrowing of the prox imal basilar artery is noted. The distal basilar artery is irregular but patent. The bilateral middle cerebral arteries are patent. There are mil d calcifications in the cavernous segments of the distal internal carotid arteries with narrowing of less than 20%. Bilateral anterior cerebral art eries are patent. The left middle cerebral artery is patent with normal c aliber. There 60% narrowing within the proximal M1 segment of the right m iddle cerebral artery. The M2 segments are patent. No large vessel occlu joel is identified. CTA NECK: Aortic arch has normal c aliber and contains calcifications and soft plaque. There is no significa nt stenosis at the origin of the brachiocephalic artery or bilateral subcl ndaine arteries. There is mild soft plaque within the left common carotid artery. There are mild calcifications in the left carotid bulb. There ar e mild calcifications in the proximal left ICA cervical segment. The greatest degree of stenosis measures 20%. The right common carotid PAGE 1 Signed Report (CONTINUED) Name: SETFANIE TAN [facility] : 7 Age/S: 62 / F [address] [place] [address] Blvd Unit #: [id number] Loc: [place] [address] Phys: Alpesh Yu MD Acct: [id number] Dis Date: Status: ADM IN PHONE #: [phone] Exam Date: 10/09/2018 183 FAX #: [phone] Re ason: Possible dissection EXAMS: CPT CODE: [id number] CT ANGIO NECK 93579 <Continued> artery is mildly tortuous but has normal caliber. There is moderate soft plaque and calcified plaque within the right carotid bulb with narrowing of 40%. There are mild calcifications within the proximal right internal carotid artery. The right vertebral artery is dominant. Both vertebral arteries are patent. The bilateral parotid glands and submandibular glands appear normal. Thyroid gland is heterogeneous. No lymphadenopathy is identified. Moderate degenerative changes at C5-6 and C6-7. Lung apices are grossly unremarkable. IMPRESSION: 1. 90% narrowing within proximal basilar artery. 2. 60% narrowing within proximal right MCA M1 segment. 3. 40% narrowing within right carotid bulb. 4. 20% narrowing within left carotid bulb and bilateral ICA cave rnous segments. 5. No large vessel occlusion or aneurysm within intracranial arteries. SL: [id number] at 1603 Reported and signed by: Zurdo Hood M.D. CC: Booker Mota M.D.; Alpesh jean MD; Gurdeep Sandra MD Technologist:Tate Calderon, RT(R) CTDI: DLP: Trnscb Date/Time: 10/09/2018 (7396) [id number] Orig Print D/T: S: 10/09/2018 (8588) PAGE 2 Signed Report BASIC METABOLIC [id number] 08:43:00* Test Item Value Reference Range Comments SODIUM (test code=NA) 143 mEq/L 134-147 POTASSIUM (test code=K) 3.6 mEq/L 3.4-5.0 CHLORIDE (test code=CL) 113 mEq/L 100-108 CARBON DIOXIDE (test code=CO2) 21 mEq/L 21-33 ANION GAP (test code=GAP) 13 0-20 GLUCOSE (test code=GLU) 94 mg/dL 70-110 BLOOD UREA NITROGEN (test code=BUN) 9 mg/dL 7-18 GLOMERULAR FILTRATION RATE (test code=GFR) 162.3 80-90 Units of measure=ml/min/1.73 m2 CREATININE (test code=CREAT) 0.4 mg/dL 0.6-1.3 CALCIUM (test code=CA) 8.2 mg/dL 8.0-10.5 CBC W/AUTO [id number] 07:45:00* Test Item Value Reference Range Comments WHITE BLOOD CELL (test code=WBC) 6.11 x10 3/uL 4.5-11.0 RED BLOOD CELL (test code=RBC) 3.37 x10 6/uL 3.54-5.02 HEMOGLOBIN (test code=HGB) 12.1 g/dL 11.0-15.0 HEMATOCRIT (test code=HCT) 34.8 % 33.0-45.0 MEAN CELL VOLUME (test code=MCV) 103.3 fL 81.0-99.0 MEAN CELL HGB (test code=MCH) 35.9 pg 27.0-33.0 MEAN CELL HGB CONCETRATION (test code=MCHC) 34.8 g/dL 33.0-37.0 RED CELL DISTRIBUTION WIDTH CV (test code=RDW) 12.0 % 11.5-14.5 RED CELL DISTRIBUTION WIDTH SD (test code=RDW-SD) 45.5 fL 37.0-54.0 PLATELET COUNT (test code=PLT) 194 x10 3/uL 150-400 MEAN PLATELET VOLUME (test code=MPV) 12.1 fL 7.0-9.0 NEUTROPHIL % (test code=NT%) 53.4 % 56.0-77.0 IMMATURE GRANULOCYTE % (test code=IG%) 0.3 % 0.0-2.0 LYMPHOCYTE % (test code=LY%) 37.0 % 14.0-32.0 MONOCYTE % (test code=MO%) 7.0 % 4.8-9.0 EOSINOPHIL % (test code=EO%) 1.5 % 0.3-3.7 BASOPHIL % (test code=BA%) 0.8 % 0.0-2.0 NUCLEATED RBC % (test code=NRBC%) 0.0 % 0-0 NEUTROPHIL # (test code=NT#) 3.26 x10 3/uL 2.0-7.6 IMMATURE GRANULOCYTE # (test code=IG#) 0.02 x10 3/uL 0.00-0.03 LYMPHOCYTE # (test code=LY#) 2.26 x10 3/uL 1.0-3.8 MONOCYTE # (test code=MO#) 0.43 x10 3/uL 0.1-0.8 EOSINOPHIL # (test code=EO#) 0.09 x10 3/uL 0.0-0.2 BASOPHIL # (test code=BA#) 0.05 x10 3/uL 0.0-0.2 NUCLEATED RBC # (test code=NRBC#) 0.00 x10 3/uL 0.0-0.1 MANUAL DIFF REQUIRED (test code=MDIFF) NO - MRA NECK [id number] 23:27:00 FAX: Booker Nelson [phone] Ruth: St: [facility] FAX: Alpesh Yu MD [phone] FAX: Gurdeep Price [phone] Name: STEFANIE BAIRD [facility] [place] : 1955 Age/S: 62/F [address] [place] [address] Blvd Unit #: [id number] Loc: [place] [address] Phys: Alpesh Yu MD Acct: [id number] Dis Date: Status: ADM IN ONE #: [phone] Exam Date: 10/08/20182037 FAX #: [phone] Reason: Stroke EXAMS: CPT CODE: [id number] MR A NECK W/CONT 09314 EXAM: MRA NECK WITH CONTRAST DATE: 10/08/2018 2:02 PM INDICATION: L eft-sided weakness. COMPARISON: None Available. TECH NIQUE: 3D keja-xg-mbsuhm MR angiography of the neck arteries was performed after the intravenous injection of 12 mL of MultiHance. 3D reconstructed images were generated. FINDINGS: The great vessels originate from the aortic arch in the standard configuration. No origin stenosis is identified. The cervical common carotid arteries have a normal c ourse, caliber, and contour. Approximately 50% stenosis of the right inte rnal carotid artery origin is identified. The left internal carotid arter y origin appears grossly patent. No hemodynamically significant stenosis is identified by NASCET criteria. The vertebral arteries hav e a normal course, caliber and contour. The vertebral artery origins are p atent bilaterally and arise from the subclavian arteries. IMPRESSION: 1. Approximately 50% stenosis of the right internal carotid artery origin, without definite evidence for hemodynamically significant stenosis. CT angiogram may be helpful to further characterize the exact degree of stenosis. 2. Otherwise, unremarkable MRA of the neck. SL: [id number]-H Electronically S igned by Mala Grande on 10/08/2018 at 2326 Reported and signed by: Beck Grande M.D. PAGE 1 Signed Re port (CONTINUED) FAX: Booker Nelson Ruth: St: ADM FAX: Alpesh Yu MD [phone] FAX : Gurdeep Price [phone] Name: STEFANIE BAIRD [place] : 1955 Age/S: 62/F [address] [place] [address] Unit #: [id number] Loc: [place] [address] Phys: Alpesh Yu MD Acct: [id number] Dis Date: Status: ADM IN PHONE #: [phone] Exam Date: 10/08 FAX #: [phone] Reason: Stroke EXAMS: CPT CODE: [id number] MRA NECK W/CONT 76629 <Continued> CC: Booker Mota M.D.; Alpesh Yu MD; Gurdeep Sandra MD Technologist: RT Ifeanyi(R)(CT) Trndcrd Date/Time/By: 10/08/2018 (2) : By: [email or web address] Orig Print D/T: S: 10/08/2018 (9857) PAGE 2 Signed Report - MRA HEAD W/O [id number] 23:23:00 FAX: Booker Nelson [phone] Ruth: St: ADM FAX: Gurdeep Price [phone] Name: STEFANIE BAIRD [place] : 1955 Age/S: 62/F [address] [place] [address] Unit #: [id number] Loc: [place] [address] Phys: Gurdeep Sandra MD Acct: [id number] Dis Date: Status: ADM IN PHONE #: [phone] Exam Date: 10/08/20182037 FAX #: [phone] Reason: Ischemic Stroke EXAMS: CPT CODE: [id number] MRA HEAD W/O CONTRAST [id number] EXAM: MRA HEAD WITHOUT CONTRAST DATE: 10/08/2018 4:59 PM INDICATION: Left-sided weakness. Vertigo. COMP ARISON: None Available. TECHNIQUE: Three-dimensional time of fligh t brain MR angiography of intracranial vessels is performed, and maximum i ntensity projection reformatted images are presented in multiple three-dim ensional rotational projections. FINDINGS: No vascular malformation or aneurysm is identified. The petrous, cavernous, and supra clinoid segments of the internal carotid arteries are unremarkable. The anterior and middle cerebral arteries demonstrate a normal course and caliber. The anterior communicating artery complex is within normal limits. Moderate to severe focal stenosis involving the proximal basilar artery and P2 segment of the left posterior cerebral artery is identified. A origin to the right posterior cerebral artery is present. The remaining basilar artery is somewhat irregular and decreased in caliber. The distal vertebral arteries are grossly unremarkable. IMPRESSION: 1. Moderate to severe focal stenosis versus occ lusion involving the proximal basilar artery and P2 segment of the left posterior cerebral artery. CT angiogram may be helpful to evaluate for p ropagating dissection. 2. origin to the right po sterior cerebral artery. SL: WR3-H Elect ronically Signed by Mala Grande on 10/08/2018 at 2323 Reported and signed by: Beck Grande M.D. PAGE 1 Signed Report (CONTINUED) FAX: Booker Nelson [phone] Ruth: St: [facility] FAX: Gurdeep Price [phone] ---- Name: STEFANIE BAIRD [facility] : 1955 Age/S: 62/F [address] [facility] Unit #: [id number] Loc: G.657 [place] [address] Phys: Gurdeep Strauss MD Acct: [id number] Dis Date: Status: ADM IN PHONE # : [phone] Exam Date: 10/08/20182037 FAX #: Reason: Ischemic Stroke EXAMS : CPT CODE: [id number] MRA HEA D W/O CONTRAST 23916 <Continued> CC: Booker Mota M.D.; Gurdeep Sandra MD Technologist: Duong Pavon RT(R)(CT) Trnscrd Date/Time/By: 10/08/2018 (8096) : By: [email or web address] Orig Print D/T: S: 10/08/2018 (2146) PAGE 2 Signed Report - MRI BRAIN WO/W [id number] 23:19:00 FAX: Booker Nelson [phone] Ruth: St: ADM FAX: Alpesh Yu MD [phone] FAX: Gurdeep rPice --------- Name: STEFANIE BAIRD [facility] : 1955 Age/S: 62/F [address] [place] [address] Un it #: [id number] Loc: G.657 [place] [address] Phys: Alpesh Yu MD Acct: [id number] Dis Date: Status: ADM IN ONE #: [phone] Exam Date: 10/08/20182037 FAX #: [phone] Reason: Stroke EXAMS: CPT CODE: [id number] MR I BRAIN WO/W CONT 90861 EXAM: MRI BRAI N WITH AND WITHOUT CONTRAST DATE: 10/08/2018 2:02 PM INDICATION: Left-sided weakness. Vertigo. COMPARISON: CT brain johny ed October 07, 2018. TECHNIQUE: Multiplanar, multisequence MRI imagin g of the brain was acquired with and without intravenous contrast. A total of 12 mL MultiHance was administered intravenously. FINDING S: No acute intracranial hemorrhage, midline shift, or mass effect is identified. Restricted diffusion is noted within the left brachium pont is, measuring approximately 17 mm on series 4 image 22. Few scattered are as of T2/FLAIR signal abnormality are noted throughout the supratentorial white matter. The ventricles and sulci are within normal limits, without evidence for hydrocephalus. There is no abnormal gradient susceptibility a rtifact or intracranial enhancement. The orbits, paranasal sinuses, and ma stoid air cells are unremarkable. The major intracranial flow voids are ma intained. IMPRESSION: 1. Acute nonhemorrhagic 17 mm inf arct in the left brachium pontis. 2. 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 SL: [id number] Electronically Signed by Mala Grande on at 4242 Reported and signed by: Maria T Zapien CC: Booker Mota M.D.; Alpesh Yu MD; Gurdeep Sandra MD Technologist: RT Ifeanyi(Aneesh)(CT) Trnscrd Date/Time/By: 0 10/08/2018 (4406) : By: [email or web address] Orig Print D/T: S: 10/08/2018 (0432) PAGE 1 Signed Report HGBA1C%2018-10-08 12:58:00* Test Item Value Reference Range Comments HGBA1C% (test code=HGBA1C%) 7.9 %A1C 4.8-6.0 - DUP EXTRACRANIAL [id number] 10:37:00 Name: STEFANIE BAIRD [facility] : 1955 Age/S: 62 / F [address] [place] [address] Blvd Unit #: [id number] Loc: [place] [address] Phys: Gurdeep Sandra MD Acct: [id number] Dis Date: Status: ADM IN PHONE #: [phone] Exam Date: 10/08/[address] [facility] FAX #: [phone] Reason: Ischemic Stroke EXAMS: CPT CODE: [id number] DUP EXTRACRANIAL DAVID [id number] STUDY: - DUP EXTRACRANIAL DAVID 10/08/2018 4:59 PM Ordering Physician: Gurdeep Sandra MD Patient Name: STEFANIE BAIRD MR: [id number] : 1955; Age: 62 years y/o Female Clinical Indication: Ischemic Stroke Comparison: None TECHNIQUE: Edouard-scale, color Doppler and spectral Doppler of the carotid arteries was performed. Any reported ICA stenoses indirectly reference the distal internal carotid diameter as the denominator for the stenosis measurement, utilizing consensus panel criteria. FINDINGS: RIGHT CAROTID Grayscale images:Moderate plaque ICA PSV: 133.8 cm/sec CCA PSV: 94.1 cm/sec ICA/CCA PSV RATIO:1.4 Vertebral flow: Antegrade. External carotid: Patent. LEFT CAROTID SYSTEM Grayscale images: Moderate plaque ICA PSV: 108.2 cm/sec CCA PSV: 85.3 cm/sec ICA/CCA PSV RATIO:1.3 Vertebral flow: Antegrade. External carotid: Patent. IMPRESSION: RIGHT: ICA stenosis 50-69% by velocity criteria. LEFT: ICA stenosis <50% by velocity criteria. PAGE 1 Signed Report (CONTINUED) Name: STEFANIE BAIRD [facility] : 1955 Age/S: 62 / F [address] [place] [address] Blvd Unit #: [id number] Loc: [place] [address] Phys: Gurdeep Sandra MD Acct: [id number] Dis Date: Status: ADM IN PHONE #: [phone] Exam Date: 10/08/[address] [facility] FAX #: [phone] Reason: Ischemic Stroke EXAMS: CPT CODE: [id number] DUP EXTRACRANIAL DAVID [id number] < Continued> Consensus panel Doppler US criteria for diagnosis of ICA stenosis: Stenosis (%) ICA PSV (cm/sec) ICA/CCA ratio ------ <50 <125 <2.0 50-69 125-230 2.0-4.0 >70 but less than >230 >4.0 near occlusion Near occlusion High, low, or Variable undetectable SL: [id number] at 1037 Reported and signed by: Miguel Garcia M.D. CC: Booker Mota M.D.; Gurdeep Sandra MD Technologist: Mahogany Spain RDMS(BR)(AB) Trnscb Date/Time: 10/08/2018 (1037) [email or web address] Orig Print D/T: S: 10/08/2018 (1040) Probe: PAGE 2 Signed Report - DUP VEIN DAVID 2018-10-08 10:11:00 Name: STEFANIE BAIRD [facility] : 1955 Age/S: 62 / F [address] [place] [address] Unit #: [id number] Loc: [place] [address] Phys: Gurdeep Sandra MD Acct: [id number] Dis Date: Status: ADM IN PHONE #: [phone] Exam Date: 10/08/[address] [facility] FAX #: [phone] Reason: right leg pain, hx of DVT EXAMS: CPT CODE: [id number] DUP VEIN DAVID 17616 EXAMINATION: Bilateral lower extremity venous Doppler October 08, 2018. CLINICAL HISTORY: Right leg pain. COMPARISON: None FINDINGS: Sonographic evaluation of the bilateral lower extremities was performed from the common femoral vein through the popliteal vein using grayscale, color Doppler, and spectral analysis. The examination demonstrates normal compressibility, flow, respiratory variation, and response to augmentation throughout. Visualized posterior tibial veins in calf appear patent. IMPRESSION: No sonographic evidence of deep venous thrombosis in either thigh. at 1011 Reported and signed by: Jamel Sow M.D. CC: Booker Mota M.D.; Gurdeep Sandra MD Technologist: Mahogany Spain RDMS(BR)(AB) Trnscb Date/Time: 10/08/2018 (1011) Sj Orig Print D/T: S: 10/08/2018 (1015) Probe: PAGE 1 Signed Report CBC W/AUTO [id number] 09:39:00* Test Item Value Reference Range Comments WHITE BLOOD CELL (test code=WBC) 9.23 x10 3/uL 4.5-11.0 RED BLOOD CELL (test code=RBC) 3.53 x10 6/uL 3.54-5.02 HEMOGLOBIN (test code=HGB) 12.5 g/dL 11.0-15.0 HEMATOCRIT (test code=HCT) 35.7 % 33.0-45.0 MEAN CELL VOLUME (test code=MCV) 101.1 fL 81.0-99.0 MEAN CELL HGB (test code=MCH) 35.4 pg 27.0-33.0 MEAN CELL HGB CONCETRATION (test code=MCHC) 35.0 g/dL 33.0-37.0 RED CELL DISTRIBUTION WIDTH CV (test code=RDW) 11.9 % 11.5-14.5 RED CELL DISTRIBUTION WIDTH SD (test code=RDW-SD) 43.8 fL 37.0-54.0 PLATELET COUNT (test code=PLT) 206 x10 3/uL 150-400 MEAN PLATELET VOLUME (test code=MPV) 12.1 fL 7.0-9.0 NEUTROPHIL % (test code=NT%) 62.2 % 56.0-77.0 IMMATURE GRANULOCYTE % (test code=IG%) 0.3 % 0.0-2.0 LYMPHOCYTE % (test code=LY%) 28.4 % 14.0-32.0 MONOCYTE % (test code=MO%) 7.0 % 4.8-9.0 EOSINOPHIL % (test code=EO%) 1.3 % 0.3-3.7 BASOPHIL % (test code=BA%) 0.8 % 0.0-2.0 NUCLEATED RBC % (test code=NRBC%) 0.0 % 0-0 NEUTROPHIL # (test code=NT#) 5.74 x10 3/uL 2.0-7.6 IMMATURE GRANULOCYTE # (test code=IG#) 0.03 x10 3/uL 0.00-0.03 LYMPHOCYTE # (test code=LY#) 2.62 x10 3/uL 1.0-3.8 MONOCYTE # (test code=MO#) 0.65 x10 3/uL 0.1-0.8 EOSINOPHIL # (test code=EO#) 0.12 x10 3/uL 0.0-0.2 BASOPHIL # (test code=BA#) 0.07 x10 3/uL 0.0-0.2 NUCLEATED RBC # (test code=NRBC#) 0.00 x10 3/uL 0.0-0.1 MANUAL DIFF REQUIRED (test code=MDIFF) NO COMPREHENSIVE METABOLIC [id number] 08:23:00* Test Item Value Reference Range Comments SODIUM (test code=NA) 141 mEq/L 134-147 POTASSIUM (test code=K) 3.5 mEq/L 3.4-5.0 CHLORIDE (test code=CL) 109 mEq/L 100-108 CARBON DIOXIDE (test code=CO2) 27 mEq/L 21-33 ANION GAP (test code=GAP) 9 0-20 GLUCOSE (test code=GLU) 100 mg/dL 70-110 BLOOD UREA NITROGEN (test code=BUN) 12 mg/dL 7-18 GLOMERULAR FILTRATION RATE (test code=GFR) 125.4 80-90 Units of measure=ml/min/1.73 m2 CREATININE (test code=CREAT) 0.5 mg/dL 0.6-1.3 TOTAL PROTEIN (test code=PROT) 6.4 g/dL 6.4-8.2 ALBUMIN (test code=ALB) 2.60 g/dL 3.4-5.0 CALCIUM (test code=CA) 8.4 mg/dL 8.0-10.5 BILIRUBIN TOTAL (test code=BILT) 0.70 mg/dL 0.0-1.0 SGOT/AST (test code=AST) 21 IUnit/L 15-37 SGPT/ALT (test code=ALT) 25 IUnit/L 15-65 ALKALINE PHOSPHATASE TOTAL (test code=ALKP) 63 IUnit/L 20-125 COMMENTS: Fasting in AMLIPID PROFILE (CORONARY RISK)2018-10-08 08:23:00* Test Item Value Reference Range Comments TRIGLYCERIDES (test code=TRIG) 123 mg/dL 40-150 CHOLESTEROL (test code=CHOL) 290 mg/dL <200 CHOLESTEROL/HDL RATIO (test code=CHOLHDL) 8.79 RATIO 3.27-4.44 RISK ASSOCIATED WITH CHOL/HDL RATIOS: RISK MALE FEMALE1/2 AVERAGE 3.43 3.27AVERAGE 4.97 4.442X AVERAGE 9.55 7.053X AVERAGE 23.39 11.04 NOTE THAT THE REFERENCE VALUE IS RELATEDTO RISK LEVELS RECOMMENDED BY THE NATL.HEART, LUNG, AND BLOOD INST. HDL CHOLESTEROL (test code=HDL) 33.0 mg/dL 39-96 LIPOPROTEIN LDL (test code=LDL) 238 mg/dL 0-100 <100 [id number] NEAR OPTIMAL/ABOVE [id number] HIGH>VB=363 VERY HIGH*Guidelines provided by the National Cholesterol EducationProgram Adult Treatment Panel III COMMENTS: Fasting in AMPROTHROMBIN [id number] 14:19:00* Test Item Value Reference Range Comments PROTHROMBIN TIME PATIENT (test code=PTP) 14.6 SECONDS 9.3-12.9 INTERNATIONAL NORMAL RATIO (test code=INR) 1.3 0.8-1.2 TARGET INR BY INDICATION Indication INR1. Prophylaxis of venous thrombosis 2.0 - 3.0 (orthopedic surgery), Prophylaxis of venous thrombosis (other than high-risk surgery), Treatment of Deep Vein Thrombosis/Pulmonary Embolism, Prevention of systemic embolism - Tissue heart valves, Acute Myocardial Infarction (to prevent systemic embolism), Valvular heart disease, Atrial Fibrillation, Bileaflet mechanical valve in aortic position.2. Mechanical prosthetic valves (high risk), 2.5 - 3.5 Presence of Lupus Anticoagulant or Antiphospholipid Antibodies, Prevention of systemic embolism - Acute Myocardial Infarction (to prevent recurrent infarct). THROMBOPLASTIN TIME [id number] 14:19:00* Test Item Value Reference Range Comments THROMBOPLASTIN TIME PARTIAL (test code=PTT) 36.7 Seconds 25.0-39.5 Therapeutic Range: 50.4 - 88.3 Seconds Effective 07/02/2018 BASIC METABOLIC [id number] 14:08:00* Test Item Value Reference Range Comments SODIUM (test code=NA) 136 mEq/L 134-147 POTASSIUM (test code=K) 3.5 mEq/L 3.4-5.0 CHLORIDE (test code=CL) 102 mEq/L 100-108 CARBON DIOXIDE (test code=CO2) 27 mEq/L 21-33 ANION GAP (test code=GAP) 11 0-20 GLUCOSE (test code=GLU) 272 mg/dL 70-110 BLOOD UREA NITROGEN (test code=BUN) 15 mg/dL 7-18 GLOMERULAR FILTRATION RATE (test code=GFR) 85.1 80-90 Units of measure=ml/min/1.73 m2 CREATININE (test code=CREAT) 0.7 mg/dL 0.6-1.3 CALCIUM (test code=CA) 9.0 mg/dL 8.0-10.5 [id number] 14:08:00* Test Item Value Reference Range Comments TROPONIN-I (test code=TROPI) < 0.015 ng/mL 0.000-0.045 Negative: <=0.045 Positive: >=0.046 Correlation with serial results, other cardiac markers andclinical findings is necessary to determine the clinicalsignificance of this result. Results using different methodologies should not be comparedto one another as quantitative results may vary by method. CBC W/O [id number] 13:59:00* Test Item Value Reference Range Comments WHITE BLOOD CELL (test code=WBC) 12.96 x10 3/uL 4.5-11.0 RED BLOOD CELL (test code=RBC) 4.09 x10 6/uL 3.54-5.02 HEMOGLOBIN (test code=HGB) 14.5 g/dL 11.0-15.0 HEMATOCRIT (test code=HCT) 40.4 % 33.0-45.0 MEAN CELL VOLUME (test code=MCV) 98.8 fL 81.0-99.0 MEAN CELL HGB (test code=MCH) 35.5 pg 27.0-33.0 MEAN CELL HGB CONCETRATION (test code=MCHC) 35.9 g/dL 33.0-37.0 RED CELL DISTRIBUTION WIDTH CV (test code=RDW) 11.7 % 11.5-14.5 RED CELL DISTRIBUTION WIDTH SD (test code=RDW-SD) 42.6 fL 37.0-54.0 PLATELET COUNT (test code=PLT) 251 x10 3/uL 150-400 MEAN PLATELET VOLUME (test code=MPV) 12.6 fL 7.0-9.0 - CT HEAD/BRAIN W/O [id number] 13:28:00 Name: STEFANIE BAIRD [facility] Dayna Soto : 1955 Age/S: 62 / F [address] [place] [address] Unit #: [id number] Loc: [place] [address] Phys: Shruthi Morales MD Acct: [id number] Dis Date: Status: REG ER PHONE #: [phone] Exam Date: 10/07/2018 1309 FAX #: [phone] Reason: left face numbness, facial droop left arm/leg w EXAMS: CPT CODE: [id number] CT HEAD/BRAIN W/O CONT [id number] STUDY: - CT HEAD/BRAIN W/O CONT 10/07/2018 12:55 PM Ordering Physician: Shruthi Morales MD Patient Name: STEFANIE BAIRD MR: [id number] : 1955; Age: 62 years y/o Female Clinical Indication: left face numbness, facial droop left arm/leg weakness Comparison: None TECHNIQUE: Multiple contiguous transaxial noncontrast CT images were obtained through the head. Coronal and sagittal reformatted images were prepared. DOSE: CT imaging performed at this location utilizes radiation dose optimization technique which includes one or more of the followin) Automated exposure control; 2) Adjustment of the mA and/or kV according to patient's size; 3) Use of iterative reconstruction techniques. DLP (mGy- cm): 420 FINDINGS: Mild diffuse age-ap propriate atrophy is present associated with minimal nonspecific periventr icular low attenuation most consistent with old microangiopathic ischemic change. No evidence of acute intracranial hemorrhage, mass lesion, mass effect, midline shift, or extra-axial fluid collection. The lateral ve ntricles, third ventricle, fourth ventricle, and basilar cisterns are appr opriate for degree of atrophy present. Minimal opacification of l eft posterior ethmoid air cells. Mastoids are clear. IMPRESSION: No acute intracranial abnorm ality. If there is further concern for intracranial pathology or acute stroke, further assessment with an MRI of the brain should be considered. PAGE 1 Signed Report (CONTINUED) Name: STEFANIE BAIRD [facility] [place] : 1955 Age/S: 62 / F [address] [place] [address] Unit #: [id number] Loc: [place] [address] Phys: Shruthi Morales MD Acct: [id number] Dis Date: Status: REG ER PHONE #: [phone] Exam Date: 10/07/2018 1309 FAX #: [phone] Reason: left face numbness, facial droop left arm/leg w EXAMS: CPT CODE: [id number] HEAD/BRAIN W/O CONT 42896 <Continued> SL: [id number] Electronic ally Signed by Inocencio Robles on 10/07/2018 at 1328 Reported and signed by: Emily Robles D.O. CC: Shruthi Morales MD; Booker Mota M.D. Technologist:RT Killian(R)(CT) CTDI: DLP: Trnscb Date/Time: 10/07/2018 (1328) [email or web address] Orig Print D/T: S: 10/07/2018 (5921) PAGE 2 Signed Report COMPREHENSIVE METABOLIC [id number] 17:28:00* Test Item Value Reference Range Comments SODIUM (test code=NA) 140 mEq/L 134-147 POTASSIUM (test code=K) 3.7 mEq/L 3.4-5.0 CHLORIDE (test code=CL) 103 mEq/L 100-108 CARBON DIOXIDE (test code=CO2) 28 mEq/L 21-33 ANION GAP (test code=GAP) 13 0-20 GLUCOSE (test code=GLU) 158 mg/dL 70-110 BLOOD UREA NITROGEN (test code=BUN) 11 mg/dL 7-18 GLOMERULAR FILTRATION RATE (test code=GFR) 85.1 80-90 Units of measure=ml/min/1.73 m2 CREATININE (test code=CREAT) 0.7 mg/dL 0.6-1.3 TOTAL PROTEIN (test code=PROT) 8.1 g/dL 6.4-8.2 ALBUMIN (test code=ALB) 3.60 g/dL 3.4-5.0 CALCIUM (test code=CA) 9.3 mg/dL 8.0-10.5 BILIRUBIN TOTAL (test code=BILT) 0.70 mg/dL 0.0-1.0 SGOT/AST (test code=AST) 44 IUnit/L 15-37 SGPT/ALT (test code=ALT) 43 IUnit/L 15-65 ALKALINE PHOSPHATASE TOTAL (test code=ALKP) 82 IUnit/L 20-125 THYROID STIMULATING [id number] 17:28:00* Test Item Value Reference Range Comments THYROID STIMULATING HORMONE (test code=TSH) 17.80 0.42-5.47 Results in rubi- International Units/mL URINALYSIS [id number] 17:05:00* Test Item Value Reference Range Comments UA COLOR (test code=COLU) YELLOW YEL/STRAW UA APPEARANCE (test code=APPU) SL CLOUDY CLEAR UA GLUCOSE DIPSTICK (test code=DGLUU) NEGATIVE NEGATIVE UA BILIRUBIN DIPSTICK (test code=BILU) NEGATIVE NEGATIVE UA KETONE DIPSTICK (test code=KETU) TRACE NEGATIVE UA SPECIFIC GRAVITY (test code=SGU) 1.019 1.005-1.030 UA BLOOD DIPSTICK (test code=SANDRA) NEGATIVE NEGATIVE UA PH DIPSTICK (test code=YULI) 7.0 5.0-7.0 UA PROTEIN DIPSTICK (test code=PROU) 2+ NEGATIVE UA UROBILINIOGEN DIPSTICK (test code=URO) 2.0 mg/dL 0.2-1.0 UA NITRITE DIPSTICK (test code=ROBERTO) NEGATIVE NEGATIVE UA LEUKOCYTE ESTERASE DIPSTICK (test code=LEUU) NEGATIVE NEGATIVE UA WBC (test code=WBCU) 4-9 WBC/HPF 0-3 UA RBC (test code=RBCU) 0-3 RBC/HPF 0-3 UA BACTERIA (test code=BACU) TRACE /HPF NONE SEEN UA SQUAMOUS CELLS (test code=SQU) 6-10 /HPF NONE SEEN UA HYALINE CAST (test code=HYALU) 0-2 /LPF NONE SEEN UA MUCUS (test code=MUCU) 3+ /LPF NONE SEEN COMPREHENSIVE METABOLIC [id number] 17:04:00* Test Item Value Reference Range Comments SODIUM (test code=NA) 140 mEq/L 134-147 POTASSIUM (test code=K) 3.7 mEq/L 3.4-5.0 CHLORIDE (test code=CL) 103 mEq/L 100-108 CARBON DIOXIDE (test code=CO2) 28 mEq/L 21-33 ANION GAP (test code=GAP) 13 0-20 GLUCOSE (test code=GLU) 158 mg/dL 70-110 BLOOD UREA NITROGEN (test code=BUN) 11 mg/dL 7-18 GLOMERULAR FILTRATION RATE (test code=GFR) 85.1 80-90 Units of measure=ml/min/1.73 m2 CREATININE (test code=CREAT) 0.7 mg/dL 0.6-1.3 TOTAL PROTEIN (test code=PROT) g/dL 6.4-8.2 ALBUMIN (test code=ALB) 3.60 g/dL 3.4-5.0 CALCIUM (test code=CA) 9.3 mg/dL 8.0-10.5 BILIRUBIN TOTAL (test code=BILT) mg/dL 0.0-1.0 SGOT/AST (test code=AST) 44 IUnit/L 15-37 SGPT/ALT (test code=ALT) 43 IUnit/L 15-65 ALKALINE PHOSPHATASE TOTAL (test code=ALKP) IUnit/L 20-125 THYROID STIMULATING [id number] 17:04:00* Test Item Value Reference Range Comments THYROID STIMULATING HORMONE (test code=TSH) 0.42-5.47 CBC W/AUTO [id number] 16:51:00* Test Item Value Reference Range Comments WHITE BLOOD CELL (test code=WBC) 10.79 x10 3/uL 4.5-11.0 RED BLOOD CELL (test code=RBC) 4.23 x10 6/uL 3.54-5.02 HEMOGLOBIN (test code=HGB) 15.3 g/dL 11.0-15.0 HEMATOCRIT (test code=HCT) 42.1 % 33.0-45.0 MEAN CELL VOLUME (test code=MCV) 99.5 fL 81.0-99.0 MEAN CELL HGB (test code=MCH) 36.2 pg 27.0-33.0 MEAN CELL HGB CONCETRATION (test code=MCHC) 36.3 g/dL 33.0-37.0 RED CELL DISTRIBUTION WIDTH CV (test code=RDW) 12.3 % 11.5-14.5 RED CELL DISTRIBUTION WIDTH SD (test code=RDW-SD) 45.3 fL 37.0-54.0 PLATELET COUNT (test code=PLT) 242 x10 3/uL 150-400 MEAN PLATELET VOLUME (test code=MPV) 10.7 fL 7.0-9.0 NEUTROPHIL % (test code=NT%) 72.6 % 56.0-77.0 IMMATURE GRANULOCYTE % (test code=IG%) 0.5 % 0.0-2.0 LYMPHOCYTE % (test code=LY%) 17.8 % 14.0-32.0 MONOCYTE % (test code=MO%) 7.5 % 4.8-9.0 EOSINOPHIL % (test code=EO%) 1.0 % 0.3-3.7 BASOPHIL % (test code=BA%) 0.6 % 0.0-2.0 NUCLEATED RBC % (test code=NRBC%) 0.0 % 0-0 NEUTROPHIL # (test code=NT#) 7.83 x10 3/uL 2.0-7.6 IMMATURE GRANULOCYTE # (test code=IG#) 0.05 x10 3/uL 0.00-0.03 LYMPHOCYTE # (test code=LY#) 1.92 x10 3/uL 1.0-3.8 MONOCYTE # (test code=MO#) 0.81 x10 3/uL 0.1-0.8 EOSINOPHIL # (test code=EO#) 0.11 x10 3/uL 0.0-0.2 BASOPHIL # (test code=BA#) 0.07 x10 3/uL 0.0-0.2 NUCLEATED RBC # (test code=NRBC#) 0.00 x10 3/uL 0.0-0.1 MANUAL DIFF REQUIRED (test code=MDIFF) NO
[2019-01-06] MEDS ORDERED: DEXAMETHASONE SOD PHOS 10 MG/1 ML VIAL IM ONE (07:15)
[2019-01-06] MEDS ORDERED: HYDROCODONE/APAP 5MG-325MG TAB PO ONE (07:15)
[2019-01-06] MEDS ORDERED: METHOCARBAMOL 500 MG TAB PO ONE (07:15)
[2019-01-06] MEDS ORDERED: KETOROLAC TROMETHAMINE 60 MG/2 ML VIAL IM ONE (07:15)
--- NOTE | 2019-01-06 07:23 | Diagnostic Imaging Report ---
Lumbar Spine Radiographs: 3 views HISTORY: Pain COMPARISON: None available. DISCUSSION: Some of the osseous structures are partially obscured by stool and bowel gas. There are five non-rib bearing lumbar vertebral bodies. The alignment of the spine is within normal limits. T12 vertebral body superior endplate compression deformity. Vascular calcifications. Lower lumbar spine facet arthropathy. IMPRESSION: Age indeterminate T12 vertebral body superior endplate compression deformity. Signed by: Dr. Tyrell Tsang MD on 01/06/2019 7:20 AM
[2019-01-06] MEDS ORDERED: ONDANSETRON HCL 4 MG ORAL DISINTEGRATING TAB PO ONE (08:00)
[2019-01-06 08:25] LABS: BILIRUBIN,URINE NEGATIVE (NEGATIVE); CLARITY,URINE SL CLOUDY (CLEAR); COLOR,URINE YELLOW (YELLOW); KETONES,URINE NEGATIVE (NEGATIVE); LEUKOCYTE ESTERASE ,URINE NEGATIVE (NEGATIVE); NITRITE,URINE NEGATIVE (NEGATIVE); PROTEIN,URINE DIPSTICK NEGATIVE (NEGATIVE); URINE UROBILINOGEN 1 mg/dL (0.2 - 1)
[2019-01-06 08:35] LABS: RBC,URINE 0-5 /HPF (0-5); WBC,URINE (MAN) 0-5 /HPF (0-5)
[2019-01-06 08:36] LABS: BACTERIA,URINE RARE /HPF; EPITHELIAL CELLS,URINE FEW /LPF
[2019-01-06 10:11] VITALS: BP 151/90
== END 2019-01-06 10:15 | disposition home or self-care (01) ==
LOC: ER 06:15
DX: M54.5 Low back pain (principal); M46.1 Sacroiliitis, not elsewhere classified; M54.16 Radiculopathy, lumbar region
CPT/HCPCS: 72110; 81001; 99283; J1100; J1885; Q0162